=== PATIENT | female | born 1990 | race Caucasian/White ===

== ENCOUNTER 2016-05-12 16:19 | Inpatient (IN) | payer OTHER ==
[~2016-05-12] VITALS: Ht 157.5 cm; Wt 126.3 kg
[~2016-05-12 16:19] MED LIST: ADVAIR DISKU1 INH; ALBUTEROL HFA60 DOSE IN; ALBUTEROL2.5 MG/3 M IN; BENADRYL25 MG PO; BREO ELLIPTA 201 INH PO; EQ LORATADINE10 MG PO; FAMOTIDINE20 MG PO; FLONASE AL50 MCG/ACT; FLOVENT HFA110 MCG IN; IPRATROPIUM BROMIDE/ IN; LORATADINE10 MG PO; MONTELUKAST SOD10 MG PO; PREDNISONE20 MG PO; PROAIR HFA IN; VENTOLIN HFA IN; ZITHROMAX250 MG PO; ZOLOFT50 MG PO; [UNRECOGNIZED DRUG - OTHER] PO
--- NOTE | 2016-05-12 17:18 | DIAGNOSTIC IMAGING REPORT ---
PROCEDURE: XR CHEST 1 VIEW INDICATION: SHORTNESS OF BREATH TECHNIQUE: Portable AP view 1705 hours. COMPARISON: Compared to chest x-ray on 04/27/2016. FINDINGS: Allowing for overlying wires and electrodes, lungs are clear. Heart and mediastinum are normal. Thorax is normal. IMPRESSION: 1. Negative chest.
--- NOTE | 2016-05-12 19:41 | ED NURSING NOTES ---
Clinical Report - Nurses [facility] [address] [place] [address] 05/12/2016 16:21 Patient: STEVE CUI TRIAGE Triage time 16:39 May 12 2016. Acuity: LEVEL 3. Chief Complaint: SHORTNESS OF BREATH and DIFFICULTY BREATHING. --16:42 J Carlos Lou RLatanyaN. 16:39 05/12/16. BP: 118/97. HR: 160. RR: 24. O2 saturation: 90%. Temp: 99.7 F. Pain level now: 02/13. --16:42 Lou Whitman RLatanyaN. Weight: 108.8 kg stated. Height/Length: 62 inches Per Patient. BMI: 43.9. --16:41 J Carlos Lou RLatanyaN. Medications Advair Diskus Inhalation. Albuterol Sulfate Inhalation 2.5mg/3mls per neb, TID. Flonase Nasal 2 sprays, daily. Loratadine Oral 10 mg, daily. ProAir HFA Inhalation 2 puffs, 4x a day as needed. --16:40 J Carlos LouTressa. Allergies NKDA. --16:40 J Carlos Lou RScooter. History Arrived by private vehicle. Historian: patient. PAST MEDICAL HX: Immunizations: up-to-date. SOCIAL HX: Never smoker. No alcohol use or drug use. ABUSE ASSESSMENT: No report of abuse. --16:42 Lou Whitman R.N. This started today. --16:50 Lou Whitman RLatanyaN. ADDITIONAL SURGERIES: no known surgeries. Interventions ID band on patient. To treatment room. --16:42 Lou Whitman RLatanyaN. PHYSICAL ASSESSMENT Ambulatory to room. GENERAL / NEURO / PSYCH: Alert. Oriented X 4. HEENT: Mucous membranes are pink. RESPIRATORY: Moderate respiratory distress. The patient can speak a few words at a time. Nasal flaring present. Retractions. Accessory muscle use. Prolonged expirations. Cough. Wheezing present. CVS: Normal sinus rhythm noted. Capillary refill less than 2 seconds. GI / : Abdomen soft and nontender. Bowel sounds within normal limits. SKIN: Skin is warm and dry. Normal skin turgor. --16:44 J CarlosAugustJen NURSING PROGRESS NOTES Pulse oximeter and NIBP monitor placed on patient. Patient gowned. Head of bed elevated. Reassurance given. Two patient identifiers checked. Call light placed in reach. Side rails up x 1. Bed placed in lowest position. Brakes of bed on. Patient ready for evaluation- chart flagged. --16:44 WalhondingaugustJen 16:45 05/12/2016 Site #1 started via IV in the right forearm with an 22g angiocath, with aseptic technique and good blood return; two attempts. Blood drawn: rainbow set. Labeled in the presence of the patient and sent to the lab. Saline lock flushed with 10 mL saline (Completed by EVERETT RN). --16:45 WalhondingaugustJen 16:51 05/12/2016 Duoneb (Ipratropium-Albuterol) Neb TX Nebulizer 1 unit dose given. Given by the respiratory therapist. Allergies verified and confirmed 5 rights. --17:naugustJen 16:57 05/12/2016 SOLU-MEDROL (MethylPREDNISolone Sodium Succ) IVP 125 mg given over 4 minute(s) via site #1. Allergies verified and confirmed 5 rights. IV patency established. IV site checked: no pain, redness, or swelling. IV flushed thoroughly pre- and post-medication administration. IVP given by RN. --17:02 J CarlosaugustJen 17:05/12/2016 Albuterol Neb TX Nebulizer 2 unit dose given. Given by the respiratory therapist. Allergies verified and confirmed 5 rights. --17:naugustJen 17:26 05/12/2016 Duoneb Neb TX Response: no adverse reaction. --17:51 J CarlosaugustSeanNLatanya 17:26 05/12/2016 SOLU-MEDROL IVP Response: no adverse reaction. --17:51 Walhonding AugustSeanNLatanya 17:27 05/12/2016 Albuterol Neb TX Nebulizer 2.5 mg given. Given by the respiratory therapist. Allergies verified and confirmed 5 rights. --17:37 August, R.N. 17:42 05/12/2016 Magnesium Sulfate (Magnesium Sulfate in D5W) IVP 2 gm given over 1 hour(s) via site #1. Allergies verified and confirmed 5 rights. IV patency established. IV site checked: no pain, redness, or swelling. IV flushed thoroughly pre- and post-medication administration. IVP given by RN. --17:52 August, R.N. 17:47 05/12/2016 SOLU-MEDROL (MethylPREDNISolone Sodium Succ) IVP 125 mg given over 4 minute(s) via site #1. Allergies verified and confirmed 5 rights. IV patency established. IV site checked: no pain, redness, or swelling. IV flushed thoroughly pre- and post-medication administration. IVP given by RN. --17:52 August, RLatanyaNLatanya 17:51 05/12/2016 Albuterol Neb TX Response: no adverse reaction. --17:51 August, R.N. environmental monitoring technician, pulse oximeter and NIBP monitor placed on patient; environmental monitoring technician- Lead II and V5; monitor alarms on. Patient gowned. Head of bed elevated. Cooling measures: ice packs applied to neck (Ice pack to back of neck). Reassurance given. Lights dimmed. Two patient identifiers checked. Call light placed in reach. Side rails up x 2. Bed placed in lowest position. Brakes of bed on. --17:53 August, R.N. 18:38 05/12/2016 Magnesium Sulfate IVP Response: no adverse reaction. --18:43 August, R.NLatanya 18:43 05/12/2016 Albuterol Neb TX Response: no adverse reaction. --18:43 August, R.NLatanya 18:43 05/12/2016 SOLU-MEDROL IVP Response: no adverse reaction. --18:43 August, R.N. 17:00 05/12/16. BP: 115/98. HR: 154. RR: 21. O2 saturation: 93%. --18:46 Walhonding Lou, R.N. 18:47 05/12/16. BP: 109/67. HR: 138. RR: 16. O2 saturation: 98%. --18:48 J Carlos Lou R.N. environmental monitoring technician, pulse oximeter and NIBP monitor placed on patient; environmental monitoring technician- Lead II and V5; monitor alarms on. Patient gowned. Head of bed elevated. Reassurance given. Two patient identifiers checked. Call light placed in reach. Side rails up x 2. Bed placed in lowest position. Brakes of bed on. --18:48 Walhonding August R.N. 18:15 05/12/16. BP: 111/64. HR: 147. RR: 20. O2 saturation: 99%. --18:54 Walhonding August R.N. 18:00 05/12/16. BP: 132/112. HR: 157. RR: 17. O2 saturation: 93%. --18:54 Walhonding August R.N. 17:45 05/12/16. BP: 125/77. HR: 162. RR: 19. O2 saturation: 94%. --18:55 Walhonding August R.N. <<STRICKEN ENTRY-- 17:45 05/12/16. BP: 124/100. HR: 165. RR: 16. O2 saturation: 94%. --18:55 Walhonding Lou R.N. --END STRIKE>> Correction. --18:56 Walhonding August R.NLatanya 17:30 05/12/16. BP: 124/100. HR: 165. RR: 16. O2 saturation: 94%. --18:55 Walhonding August R.N. 17:15 05/12/16. BP: 96/43. HR: 143. RR: 18. O2 saturation: 97%. --18:56 Walhonding August R.N. 19:48 05/12/16. BP: 108/82. HR: 135. RR: 18. O2 saturation: 98% on nasal cannula at 2 liters/minute. Pain level now: 02/13. --19:49 Walhonding Lou R.N. 19:59 05/12/2016 PROTONIX (Pantoprazole Sodium) IVP 40 mg given over 2 minute(s) via site #1. Allergies verified and confirmed 5 rights. IV patency established. IV site checked: no pain, redness, or swelling. IV flushed thoroughly pre- and post-medication administration. IVP given by RN. --19:59 Lou Whitman R.N. DISPOSITION / DISCHARGE Report was given to a nurse via a phone call. Report included patient's care, treatment, medications, reviewed medication reconcilliation, and condition (including any recent changes or anticipated changes). All questions were answered. Report was acknowledged and care was transferred. (Naheed). --21:58 Lou Whitman R.N. 20:30 05/12/2016 PROTONIX IVP Response: no adverse reaction. --22:30 Lou Whitman R.N. 22:20 05/12/2016 Site #[address] upon admission. Converted to saline lock. --22:30 Lou Whitman R.N. 23:15pm. Departure time: 2315 pm. Transported via stretcher by nurse with O2. --22:32 Lou Whitman R.N. 22:30 05/12/16. BP: 110/90. HR: 126. RR: 15. O2 saturation: 98% on nasal cannula at 2 liters/minute. Pain level now: 02/13. --22:32 Lou Whitman R.N. Locked/Released at 05/26/2016 15:14 by Christa Ojeda R.N.
--- NOTE | 2016-05-12 19:41 | ED ORDER SUMMARY ---
..... Patient: STEVE CUI OrderSheet [facility] VisitID: [id number] [place] [address] 26y, F Registration Date/Time: 05/12/2016 ORDER SHEET Weight: 108.8 kg (stated) Allergies: NKDA GENERAL ORDERS: Pulse oximeter (16:45 05/12/2016 ABarnum R.N. per protocol) (16:46 ABarnum R.N.) Chest 2V Urgent (16:52 05/12/2016 HBivens A.R.N.P.) (Ack 16:55 LTapper) (Cancelled: pt to SOB17:02 DDean R.N.) Feeder Operator (Continuous) (16:52 05/12/2016 HBivens A.R.N.P.) (17:00 ABarnum R.N.) CBC w Diff Urgent (16:52 05/12/2016 HBivens A.R.N.P.) (Ack 16:55 LTapper) (17:00 ABarnum R.N.) BMP Urgent (16:52 05/12/2016 HBivens A.R.N.P.) (Ack 16:55 LTapper) (17:00 ABarnum R.N.) Serum Qualitative Urgent (16:52 05/12/2016 HBivens A.R.N.P.) (Ack 16:55 LTapper) (17:00 ABarnum R.N.) Chest 1V Urgent (17:02 05/12/2016 DDean R.N. per protocol) (Ack 17:10 LTapper) (17:37 ABarnum R.N.) ABG (G) Urgent (19:31 05/12/2016 Corby JOSUE) (Ack 19:35 Peyton ARMSTRONG [employer] Consultant) (19:49 ABarnum R.N.) MEDICATION ORDERS: Albuterol Neb Tx 2 unit doses (NOW) (16:52 05/12/2016 HBivens A.R.N.P.) (Ack 17:00 ABarnum R.N.) (17:01 ABarnum R.N.) Solu-MEDROL IM 125 mg (NOW) (16:52 05/12/2016 HBivens A.R.N.P.) (Ack 17:00 ABarnum R.N.) (17:02 ABarnum R.N.) DuoNeb Neb Tx 1 unit dose (NOW) (17:01 05/12/2016 ABarnum R.N. per protocol) (17:01 ABarnum R.N.) Albuterol Neb Tx continuous (NOW) (17:21 05/12/2016 HBivens A.R.N.P.) (17:37 ABarnum R.N.) IV FLUIDS: Magnesium Sulfate IV 2 gm/50mL (HIGH ALERT MEDICATION, NOW, over 1 hour) (17:21 05/12/2016 HBivens A.R.N.P.) (Ack 17:37 ABarnum R.N.) (17:52 ABarnum R.N.) Solu-MEDROL IV 125 mg (NOW) (17:22 05/12/2016 HBivens A.R.N.P.) (Ack 17:37 ABarnum R.N.) (17:52 ABarnum R.N.) Protonix IVP 40mg 40 mg (Mix in NS 10ml over 2min) (19:35 05/12/2016 HBivens A.R.N.P.) (Ack 19:49 ABarnum R.N.) (19:59 ABarnum R.N.) ORDER SHEET NOTES: [Electronically signed by Jumana Penaloza A.R.N.P. (22:52 05/12/2016)] [Electronically signed by Christa Ojeda R.N. (15:14 05/26/2016)] [Electronically locked/signed by Christa Ojeda R.N. (15:14 05/26/2016)]
--- NOTE | 2016-05-12 19:41 | ED ORDER SUMMARY ---
..... Patient: STEVE CUI OrderSheet [facility] VisitID: [id number] [place] [address] 26y, F Registration Date/Time: 05/12/2016 ORDER SHEET Weight: 108.8 kg (stated) Allergies: NKDA GENERAL ORDERS: Pulse oximeter (16:45 05/12/2016 ABarnum R.N. per protocol) (16:46 ABarnum R.N.) Chest 2V Urgent (16:52 05/12/2016 HBivens A.R.N.P.) (Ack 16:55 LTapper) (Cancelled: pt to SOB17:02 DDean R.N.) Seafood Manager (Continuous) (16:52 05/12/2016 HBivens A.R.N.P.) (17:00 ABarnum R.N.) CBC w Diff Urgent (16:52 05/12/2016 HBivens A.R.N.P.) (Ack 16:55 LTapper) (17:00 ABarnum R.N.) BMP Urgent (16:52 05/12/2016 HBivens A.R.N.P.) (Ack 16:55 LTapper) (17:00 ABarnum R.N.) Serum Qualitative Urgent (16:52 05/12/2016 HBivens A.R.N.P.) (Ack 16:55 LTapper) (17:00 ABarnum R.N.) Chest 1V Urgent (17:02 05/12/2016 DDean R.N. per protocol) (Ack 17:10 LTapper) (17:37 ABarnum R.N.) ABG (G) Urgent (19:31 05/12/2016 Corby JOSUE) (Ack 19:35 Peyton ARMSTRONG [employer]anned Leather Roller) (19:49 ABarnum R.N.) MEDICATION ORDERS: Albuterol Neb Tx 2 unit doses (NOW) (16:52 05/12/2016 HBivens A.R.N.P.) (Ack 17:00 ABarnum R.N.) (17:01 ABarnum R.N.) Solu-MEDROL IM 125 mg (NOW) (16:52 05/12/2016 HBivens A.R.N.P.) (Ack 17:00 ABarnum R.N.) (17:02 ABarnum R.N.) DuoNeb Neb Tx 1 unit dose (NOW) (17:01 05/12/2016 ABarnum R.N. per protocol) (17:01 ABarnum R.N.) Albuterol Neb Tx continuous (NOW) (17:21 05/12/2016 HBivens A.R.N.P.) (17:37 ABarnum R.N.) IV FLUIDS: Magnesium Sulfate IV 2 gm/50mL (HIGH ALERT MEDICATION, NOW, over 1 hour) (17:21 05/12/2016 HBivens A.R.N.P.) (Ack 17:37 ABarnum R.N.) (17:52 ABarnum R.N.) Solu-MEDROL IV 125 mg (NOW) (17:22 05/12/2016 HBivens A.R.N.P.) (Ack 17:37 ABarnum R.N.) (17:52 ABarnum R.N.) Protonix IVP 40mg 40 mg (Mix in NS 10ml over 2min) (19:35 05/12/2016 HBivens A.R.N.P.) (Ack 19:49 ABarnum R.N.) (19:59 ABarnum R.N.) ORDER SHEET NOTES: [Electronically signed by Jumana Penaloza A.R.N.P. (22:52 05/12/2016)] [Electronically signed by Christa Ojeda R.N. (15:14 05/26/2016)] [Electronically locked/signed by Christa Ojeda R.N. (15:14 05/26/2016)]
--- NOTE | 2016-05-12 19:41 | ED CLINICAL REPORT ---
Clinical Report - Physicians/Mid Levels [facility] [address] [place] [address] 05/12/2016 16:21 Patient: STEVE CUI Time Seen: 16:45; upon arrival, initial patient contact, initial documentation, patient care assumed. Arrived- By private vehicle. Historian- patient. HISTORY OF PRESENT ILLNESS Chief Complaint: DYSPNEA, WHEEZING and HISTORY OF ASTHMA. This started about 2 - 3 days ago and is still present and now worse. The dyspnea is described as moderate. The patient has had a cough. No sputum production, orthopnea or chest pain. She has had generalized chest discomfort (burning). See nurses notes for current asthma threapy. Asthma triggers: unknown. Takes asthma medications (inhaled albuterol, inhaled steroid) Similar symptoms previously: Chronically, as bad. Recent medical care: The patient was seen recently at this facility in the emergency department. ( txed here 04/26 for asthma issues). REVIEW OF SYSTEMS No sore throat, sinus drainage or fever. She has had a nasal discharge and muscle aches. brother sick with uri flu. All systems otherwise negative, except as recorded above. PAST HISTORY See nurses notes. Problems: Respiratory Failure. Pt has been previously intubated at [facility] in December 2011. Hypertension. Asthma. Seasonal allergies Obesity Developmental delay Surgeries: no known surgeries. SOCIAL HISTORY Never smoker. No alcohol use or drug use. No recent travel. Is a local resident. FAMILY HISTORY Negative. ADDITIONAL NOTES The nursing notes have been reviewed with agreement regarding the chief complaint, HPI, ROS, PMH and patient medications and allergies. PHYSICAL EXAM Vital Signs: 05/12/2016 16:39 BP: 118/97. HR: 160. RR: 24. O2 saturation: 90%. Temp: 99.7 F. Pain level now: 10/10. Have been reviewed as abnormal and appear to be correct. Blood pressure normal. Tachycardic. Respiratory rate normal. Temperature normal. Oxygen saturation low. Appearance: Alert. No acute distress. Eyes: Pupils equal, round and reactive to light. Eyes normal inspection. ENT: Ears normal. Nose normal. Pharynx normal. Uvula midline. Neck: Normal inspection. Neck supple. CVS: Heart rate / rhythm abnormal. Tachycardia (ventricular rate = 160). Heart sounds normal. Pulses normal. Respiratory: Respiratory distress present. Moderate respiratory distress with accessory muscle use, anxiety, diaphoresis and tachypnea. Speaks in single words. Mild fatigue. Mild retractions. Breath sounds abnormal. Expiratory and inspiratory moderate bilateral wheezes diffusely. Abdomen: Moderately obese. Back: Normal inspection. Skin: Skin warm but moist. Normal skin color. No rash. Normal skin turgor. Moderate diaphoresis. Extremities: Extremities exhibit normal ROM. No lower extremity edema. Neuro: Oriented X 3. No motor deficit. No sensory deficit. LABS, X-RAYS, AND EKG Chest X-ray: Normal Chest X-Ray. (IMPRESSION: 1. Negative chest. Electronically Final signed by:Danrell Banuelos MD 05/12/2016 5:15:15 PM). The X-rays were interpreted by the radiologist and contemporaneously by me. Laboratory Tests: Serum Qualitative: (JOSSELYN: 05/12/2016 16:45) ( TxgRcvd 05/12/2016 17:12) Final results Test Result Flag Units (Reference) , SERUM NEGATIVE CBC w Diff: (JOSSELYN: 05/12/2016 16:45) ( MsgRcvd 05/12/2016 17:06) Final results Test Result Flag Units (Reference) WHITE BLOOD COUNT 22.1 H K/uL (4.5-11.5) RED BLOOD COUNT 5.25 H M/uL (4.00-5.20) HEMOGLOBIN 15.5 gm/dL (12.0-16.0) HEMATOCRIT 47.5 H % (36.0-46.0) MEAN CELL VOLUME 91 fL (80-100) MEAN CORPUSCULAR HGB 30 pg (26-34) MEAN CORPUSCULAR HGB CONC 33 g/dL (31-37) RED CELL DISTRIBUTION WIDTH 13.0 % (11.6-14.8) PLATELET COUNT 327 K/uL (150-400) NEUTROPHIL % 91.8 H % (50-75) LYMPH % 2.4 L % (25-40) MONO % 5.5 % (3-14) EOSINOPHIL % 0.2 % (0-4) BASOPHIL % 0.1 % (0-2) BMP: (JOSSELYN: 05/12/2016 16:45) ( MsgRcvd 05/12/2016 17:08) Final results Test Result Flag Units (Reference) GLUCOSE 111 H mg/dL (70-110) BUN 8 mg/dL (7-18) CREATININE 0.7 mg/dL (0.6-1.3) Estimated GFR >60 mL/min Estimated GFR- >60 mL/min Note: Persistent reduction over 3 months in eGFR<60 mL/min/1.73 m2 defines CKD. Patients with eGFR values>=60 mL/min/1.73 m2 may also have CKD if evidence ofpersistent proteinuria. Additional information may be foundat www.kidney.org. SODIUM 136 mmol/L (136-145) POTASSIUM 3.9 mmol/L (3.5-5.1) CHLORIDE 102 mmol/L (98-107) CARBON DIOXIDE 24 mmol/L (21-32) CALCIUM 8.7 mg/dL (8.5-10.1) ABG: (JOSSELYN: 05/12/2016 19:31) ( MsgRcvd 05/12/2016 19:49) Final results Test Result Flag Units (Reference) FIO2 28 % (20-101) ABG MODE OF DELIVERY NC MODIFIED RAY TEST POSITIVE? YES LITERS PER MIN. 2 L/MIN (0-20) ABG PATIENT RESP RATE 20 /MIN ARTERIAL BLOOD GAS SITE LR ARTERIAL BLOOD GAS pH 7.50 H (7.35-7.45) ABG PCO2 23.0 L mmHg (35-45) ABG PO2 73.1 L mmHg (80.0-100.0) ABG BASE EXCESS -4.5 H mmol/L (-6.0--6.0) ABG HCO3 17.7 L mmol/L (20.0-26.0) ABG TCO2 18.4 L mmol/L (24.0-30.0) ABG VbAvA1y 99.6 H mmHg (7.0-14.0) *NOTE: Normal rangeis based on aFIO2 of 21% ABG SAT O2 97.0 % (95.1-100.0) ABG TOTAL HEMOGLOBIN 14.6 g/dL (12.0-16.0) ABG O2 HEMOGLOBIN 95.5 % (95.0-100.0) ABG CARBOXYHEMOGLOBIN 1.5 % (0.5-1.5) ABG METHEMOGLOBIN 0.0 L % (0.4-1.5) ABG RHEMOGLOBIN 3.0 % . PROGRESS AND PROCEDURES Course of Care: 1715. Upon reassessment, pt does not look any better, resp even and labored still, pt looking more tired, B insp and exp wheezes heard thruout, concern for possible intubation, HR 174, R 28, PO 85%ra Dr Dong aware of pt status, and at bedside to exam 1718. nurse aware, asked to move pt to room 1 or 2 for closer observation 1730. speaking to resp therapy about pt's tx plan, pt less diaphoretic now, pt moved into room 1 1745. no change in pt status 18:32 05/12/16. pt has jen for er visits, nothing alarming, see report for full details 18:35 05/12/16. speaking to Dr Alvarez re admitting pt, concerns voiced over possible intubation, and if pt is not doing well, and might need intubation, then transfer out, due to vent management, agreed to observe her a little longer in ER 1850. Mag just finished, no real change in pt status, Resp even and still labored, B breath sounds with insp and exp wheezes heard, discussing with pt about possible intubation, pt stated she felt a little better, but also felt tired 1930. Dr Ceballos here, spoke to him about pt status and whether to transfer, admit, intubate Mcn[place] has no beds Lin to bedside with me to assess pt 2029. abg's results discussed with Lin 20:44 05/12/16. pt doing better, resp even and very mildly labored, continuous neb tx was stopped, po99%ra, and pt stated she felt better 21:47 05/12/16. pt resting quietly, no resp distress, awaiting icu bed. 05/12/2016 18:47 BP: 109/67. HR: 138. RR: 16. O2 saturation: 98%. Vital Signs: have been reviewed as abnormal and appear to be correct. Blood pressure normal. Tachycardic. Respiratory rate normal. Temperature normal. Oxygen saturation normal. Critical care performed (60 minutes). Time includes: direct patient care, patient reassessment, coordination of patient care, interpretation of data (laboratory data, pulse oximetry, arterial blood gases and chest xrays), medical consultation and documentation of patient care- see progress notes. Differential Diagnosis: I considered asthma, pneumonia and pleural effusion as a possible cause of dyspnea in this patient. This is a partial list of diagnoses considered. (flu, bronchitis, uri, sinusitis, allergies, bronchospasm). Above considerations are based on history, physical exam, laboratory data and X-Ray data. Differential diagnosis was discussed with patient. Disposition: Admitted to the Critical Care Unit. 19:54. CLINICAL IMPRESSION Severe persistent asthma with an acute exacerbation, status asthmaticus, hypoxemia and acute respiratory failure. No pneumonia. (Electronically signed by Jumana Penaloza A.R.N.P. 05/12/2016 22:52)
--- NOTE | 2016-05-12 19:41 | ED NURSING NOTES ---
Clinical Report - Nurses [facility] [address] [place] [address] 05/12/2016 16:21 Patient: STEVE CUI TRIAGE Triage time 16:39 May 12 2016. Acuity: LEVEL 3. Chief Complaint: SHORTNESS OF BREATH and DIFFICULTY BREATHING. --16:42 J Carlos Lou RLatanyaN. 16:39 05/12/16. BP: 118/97. HR: 160. RR: 24. O2 saturation: 90%. Temp: 99.7 F. Pain level now: 02/13. --16:42 Lou Whitman RLatanyaN. Weight: 108.8 kg stated. Height/Length: 62 inches Per Patient. BMI: 43.9. --16:41 J Carlos Lou RLatanyaN. Medications Advair Diskus Inhalation. Albuterol Sulfate Inhalation 2.5mg/3mls per neb, TID. Flonase Nasal 2 sprays, daily. Loratadine Oral 10 mg, daily. ProAir HFA Inhalation 2 puffs, 4x a day as needed. --16:40 J Carlos LouTressa. Allergies NKDA. --16:40 J Carlos Lou RScooter. History Arrived by private vehicle. Historian: patient. PAST MEDICAL HX: Immunizations: up-to-date. SOCIAL HX: Never smoker. No alcohol use or drug use. ABUSE ASSESSMENT: No report of abuse. --16:42 Lou Whitman R.N. This started today. --16:50 Lou Whitman RLatanyaN. ADDITIONAL SURGERIES: no known surgeries. Interventions ID band on patient. To treatment room. --16:42 Lou Whitman RLatanyaN. PHYSICAL ASSESSMENT Ambulatory to room. GENERAL / NEURO / PSYCH: Alert. Oriented X 4. HEENT: Mucous membranes are pink. RESPIRATORY: Moderate respiratory distress. The patient can speak a few words at a time. Nasal flaring present. Retractions. Accessory muscle use. Prolonged expirations. Cough. Wheezing present. CVS: Normal sinus rhythm noted. Capillary refill less than 2 seconds. GI / : Abdomen soft and nontender. Bowel sounds within normal limits. SKIN: Skin is warm and dry. Normal skin turgor. --16:44 J CarlosAugustJen NURSING PROGRESS NOTES Pulse oximeter and NIBP monitor placed on patient. Patient gowned. Head of bed elevated. Reassurance given. Two patient identifiers checked. Call light placed in reach. Side rails up x 1. Bed placed in lowest position. Brakes of bed on. Patient ready for evaluation- chart flagged. --16:44 ShelbyaugustJen 16:45 05/12/2016 Site #1 started via IV in the right forearm with an 22g angiocath, with aseptic technique and good blood return; two attempts. Blood drawn: rainbow set. Labeled in the presence of the patient and sent to the lab. Saline lock flushed with 10 mL saline (Completed by EVERETT RN). --16:45 ShelbyaugustJen 16:51 05/12/2016 Duoneb (Ipratropium-Albuterol) Neb TX Nebulizer 1 unit dose given. Given by the respiratory therapist. Allergies verified and confirmed 5 rights. --17:naugustJen 16:57 05/12/2016 SOLU-MEDROL (MethylPREDNISolone Sodium Succ) IVP 125 mg given over 4 minute(s) via site #1. Allergies verified and confirmed 5 rights. IV patency established. IV site checked: no pain, redness, or swelling. IV flushed thoroughly pre- and post-medication administration. IVP given by RN. --17:02 J CarlosaugustJen 17:05/12/2016 Albuterol Neb TX Nebulizer 2 unit dose given. Given by the respiratory therapist. Allergies verified and confirmed 5 rights. --17:naugustJen 17:26 05/12/2016 Duoneb Neb TX Response: no adverse reaction. --17:51 J CarlosaugustSeanNLatanya 17:26 05/12/2016 SOLU-MEDROL IVP Response: no adverse reaction. --17:51 Shelby AugustSeanNLatanya 17:27 05/12/2016 Albuterol Neb TX Nebulizer 2.5 mg given. Given by the respiratory therapist. Allergies verified and confirmed 5 rights. --17:37 August, R.N. 17:42 05/12/2016 Magnesium Sulfate (Magnesium Sulfate in D5W) IVP 2 gm given over 1 hour(s) via site #1. Allergies verified and confirmed 5 rights. IV patency established. IV site checked: no pain, redness, or swelling. IV flushed thoroughly pre- and post-medication administration. IVP given by RN. --17:52 August, R.N. 17:47 05/12/2016 SOLU-MEDROL (MethylPREDNISolone Sodium Succ) IVP 125 mg given over 4 minute(s) via site #1. Allergies verified and confirmed 5 rights. IV patency established. IV site checked: no pain, redness, or swelling. IV flushed thoroughly pre- and post-medication administration. IVP given by RN. --17:52 August, RLatanyaNLatanya 17:51 05/12/2016 Albuterol Neb TX Response: no adverse reaction. --17:51 August, R.N. bus monitor, pulse oximeter and NIBP monitor placed on patient; bus monitor- Lead II and V5; monitor alarms on. Patient gowned. Head of bed elevated. Cooling measures: ice packs applied to neck (Ice pack to back of neck). Reassurance given. Lights dimmed. Two patient identifiers checked. Call light placed in reach. Side rails up x 2. Bed placed in lowest position. Brakes of bed on. --17:53 August, R.N. 18:38 05/12/2016 Magnesium Sulfate IVP Response: no adverse reaction. --18:43 August, R.NLatanya 18:43 05/12/2016 Albuterol Neb TX Response: no adverse reaction. --18:43 August, R.NLatanya 18:43 05/12/2016 SOLU-MEDROL IVP Response: no adverse reaction. --18:43 August, R.N. 17:00 05/12/16. BP: 115/98. HR: 154. RR: 21. O2 saturation: 93%. --18:46 Shelby Lou, R.N. 18:47 05/12/16. BP: 109/67. HR: 138. RR: 16. O2 saturation: 98%. --18:48 J Carlos Lou R.N. bus monitor, pulse oximeter and NIBP monitor placed on patient; bus monitor- Lead II and V5; monitor alarms on. Patient gowned. Head of bed elevated. Reassurance given. Two patient identifiers checked. Call light placed in reach. Side rails up x 2. Bed placed in lowest position. Brakes of bed on. --18:48 Shelby August R.N. 18:15 05/12/16. BP: 111/64. HR: 147. RR: 20. O2 saturation: 99%. --18:54 Shelby August R.N. 18:00 05/12/16. BP: 132/112. HR: 157. RR: 17. O2 saturation: 93%. --18:54 Shelby August R.N. 17:45 05/12/16. BP: 125/77. HR: 162. RR: 19. O2 saturation: 94%. --18:55 Shelby August R.N. <<STRICKEN ENTRY-- 17:45 05/12/16. BP: 124/100. HR: 165. RR: 16. O2 saturation: 94%. --18:55 Shelby Lou R.N. --END STRIKE>> Correction. --18:56 Shelby August R.NLatanya 17:30 05/12/16. BP: 124/100. HR: 165. RR: 16. O2 saturation: 94%. --18:55 Shelby August R.N. 17:15 05/12/16. BP: 96/43. HR: 143. RR: 18. O2 saturation: 97%. --18:56 Shelby August R.N. 19:48 05/12/16. BP: 108/82. HR: 135. RR: 18. O2 saturation: 98% on nasal cannula at 2 liters/minute. Pain level now: 02/13. --19:49 Shelby Lou R.N. 19:59 05/12/2016 PROTONIX (Pantoprazole Sodium) IVP 40 mg given over 2 minute(s) via site #1. Allergies verified and confirmed 5 rights. IV patency established. IV site checked: no pain, redness, or swelling. IV flushed thoroughly pre- and post-medication administration. IVP given by RN. --19:59 Lou hWitman R.N. DISPOSITION / DISCHARGE Report was given to a nurse via a phone call. Report included patient's care, treatment, medications, reviewed medication reconcilliation, and condition (including any recent changes or anticipated changes). All questions were answered. Report was acknowledged and care was transferred. (Naheed). --21:58 Lou Whitman R.N. 20:30 05/12/2016 PROTONIX IVP Response: no adverse reaction. --22:30 Lou Whitman R.N. 22:20 05/12/2016 Site #[address] upon admission. Converted to saline lock. --22:30 Lou Whitman R.N. 23:15pm. Departure time: 2315 pm. Transported via stretcher by nurse with O2. --22:32 Lou Whitman R.N. 22:30 05/12/16. BP: 110/90. HR: 126. RR: 15. O2 saturation: 98% on nasal cannula at 2 liters/minute. Pain level now: 02/13. --22:32 Lou Whitman R.N. Locked/Released at 05/26/2016 15:14 by Christa Ojeda R.N.
--- NOTE | 2016-05-12 20:28 | Progress Note ---
Subjective General Patient has hx of polysubstance abuse and IV heroin presents to ER with elevation in temp,procalcitonin and soft murmur. Will admit for blood cx and IV ABX.
--- NOTE | 2016-05-12 21:42 | Progress Note ---
Subjective General Full note dictated: 26 y.o. female who presented with acute asthma exacerbation, hx of multiple in the past and was with another flare. ABG ok and hyperventilating at this time. Seems to be improving.
[2016-05-12 22:26] VITALS: BP 125/54
--- NOTE | 2016-05-12 22:54 | HISTORY AND PHYSICAL ---
ADMITTED: 05/12/2016 CHIEF COMPLAINT: 1. Shortness of breath HISTORY OF PRESENT ILLNESS: The patient is a 26-year-old female with a long history of asthma, asthma exacerbations and multiple admits to the hospital. She was at home today when she had abrupt onset of severe shortness of breath that was while she was laying down sleeping, she could breathe at all, her family member found her and brought her in to the emergency department for urgent evaluation with significant difficulty with breathing and shortness of breath. MEDICAL/SURGICAL HISTORY: Past medical history: She has been with multiple similar episodes of asthma and asthma exacerbations. She also has some obesity, anxiety, developmental delays. She has had an intubation in the past in 2011 at [facility] for asthma. Past surgical history: None. MEDICATIONS: 1. Albuterol inhaler 2 puffs every 4 hours as needed. 2. Advair Diskus 250/50 inhalation b.i.d. 3. Zoloft 25 mg p.o. daily. ALLERGIES: 1. POLLENS. 2. CAT DANDER. SOCIAL HISTORY: She is single. She lives with her adoptive aunt. She is on Social Security Disability. Does not smoke. Does not drink. Does not use any drugs. FAMILY HISTORY: Mom had mental illness with schizophrenia and father's history is unknown. REVIEW OF SYSTEMS: She has been having a burning sensation in her chest with tight breathing and some wheezing. Otherwise, she denies fevers. Denies having issues prior to this acute exacerbation. She does have some reflux. PHYSICAL EXAMINATION: GENERAL: She is an alert female who is taking deep breaths, but able to talk in full sentences. VITAL SIGNS: Blood pressure 118/97, heart rate of 160, respirations 24, saturating 90%, temperature 99.7. HEENT: Extraocular movements intact. Pupils equal, round, reactive to light. Oropharynx is clear with moist mucous membranes. NECK: Supple without lymphadenopathy. LUNGS: Good air movement, though there are wheezes bilaterally. HEART: Regular rate and rhythm. No murmur. ABDOMEN: Obese, nontender, nondistended. EXTREMITIES: No edema. No sores. GENITOURINARY: Deferred. RECTAL: Deferred. BREASTS: Deferred. LAB/IMAGING: Chest x-ray was negative. Laboratories: CBC: White count of 22.1, hematocrit of 47.5, and platelets of 327 ,000. Basic metabolic panel: Glucose 111, BUN of 8, creatinine 0.7, sodium 136, potassium 3.9, chloride of 102, carbon dioxide 24, calcium of 8.7. Serum was negative. Arterial blood gas: PH of 7.5, pCO2 23, pO2 73, 97% saturation. IMPRESSION: 1. A 26-year-old female with recurrent asthma exacerbation. 2. Obesity. 3. Mild mental changes. 4. Likely obstructive sleep apnea and acid reflux with possible bronchospasm. PLAN: Admit to the hospital, steroids, inhalation treatment. May consider a little bit of Ativan for her hyperventilation if she does not calm down with her breathing, but she seems to be improving at this time. Anticipate that she will be admitted to the hospital for a short stay, though with her history of severe exacerbations coming and going, we do not know exactly which way she will turn.
[2016-05-13 02:16] VITALS: BP 137/75
[2016-05-13 06:39] VITALS: BP 140/79
--- NOTE | 2016-05-13 09:53 | Progress Note ---
Subjective General Pt. doesn't feel well and feels SOB. Doesn't feel she's ready to go home. Other ROS OK except for cough and general feeling of malaise. Physical Exam Vital Signs / I&Os Vital Signs Date Time Temp Pulse Resp B/P Pulse O2 O2 Flow FiO2 Ox Delivery Rate 05/13 799 2.0 05/13 0539 98.4 121 21 140/79 94 Nasal 3.0 Cannula 05/13 0602 3.0 05/13 0216 98.4 119 20 137/75 96 Nasal 3.0 Cannula 05/13 0130 3.0 05/12 2322 3.0 05/12 2237 2.0 05/12 2226 97.7 123 24 125/54 98 Nasal 3.0 Cannula 05/12 1999 2.0 I&O 05/12 0805/12 1600 05/13 0000 Intake Total Output Total Balance General Appearance Alert, Oriented X3, Cooperative, some frequent coughing. HEENT Normal exam Lungs Chest basically clear . Slinghtly prolonged expiratory phase by no disticnt wheezing. Cardiovascular tachycardia., no M or G. Abdomen Normal exam, Normal bowel sounds, Soft, No tenderness Skin No Rashes, No Breakdown Neurological Normal exam, Normal speech, Cranial nerves intact Psych/Mental Status quite anxious LAB Results Laboratory Tests 05/12 05/12 05/12 05/13 1645 1645 1931 0500 Blood Gas Sample Site LR Total CO2 (24.0 - 30.0 mmol/L) 18.4 ABG pH (7.35 - 7.45) 7.50 ABG pCO2 at Pt Temp (35 - 45 mmHg) 23.0 ABG pO2 at Pt Temp (80.0 - 100.0 mmHg) 73.1 ABG HCO3 (20.0 - 26.0 mmol/L) 17.7 ABG O2 Sat Calc/Kiana (95.1 - 100.0 %) 97.0 ABG Base Excess (-6.0 - -6.0 mmol/L) -4.5 ABG Reduced Hgb (%) 3.0 ABG Carboxyhemoglobin (0.5 - 1.5 %) 1.5 ABG Methemoglobin (0.4 - 1.5 %) 0.0 Gabriel Test YES Other Total Hgb (12.0 - 16.0 g/dL) 14.6 A-a O2 Gradient (7.0 - 14.0 mmHg) 99.6 Hgb O2 Saturation (95.0 - 100.0 %) 95.5 Respiration Rate (/MIN) 20 O2 Liters/Min (0 - 20 L/MIN) 2 Vent Mode NC FiO2 (20 - 101 %) 28 Chemistry Plasma Sodium (136 - 145 mmol/L) 136 Cancelled Plasma Potassium (3.5 - 5.1 mmol/L) 3.9 Cancelled Plasma Chloride (98 - 107 mmol/L) 102 Cancelled CO2 (Enzymatic) (21 - 32 mmol/L) 24 Cancelled BUN (7 - 18 mg/dL) 8 Cancelled Creatinine (0.6 - 1.3 mg/dL) 0.7 Cancelled Est GFR ( Amer) (mL/min) >60 Cancelled Est GFR (Non-Af Amer) (mL/min) >60 Cancelled Glucose (70 - 110 mg/dL) 111 Cancelled Plasma Calcium (8.5 - 10.1 mg/dL) 8.7 Cancelled Serum , Qual NEGATIVE Hematology WBC (4.5 - 11.5 K/uL) 22.1 Cancelled RBC (4.00 - 5.20 M/uL) 5.25 Cancelled Hgb (12.0 - 16.0 gm/dL) 15.5 Cancelled Hct (36.0 - 46.0 %) 47.5 Cancelled MCV (80 - 100 fL) 91 Cancelled MCH (26 - 34 pg) 30 Cancelled RDW (11.6 - 14.8 %) 13.0 Cancelled Neut % (Auto) (50 - 75 %) 91.8 Lymph % (Auto) (25 - 40 %) 2.4 [place] % (Auto) (3 - 14 %) 5.5 Eos % (Auto) (0 - 4 %) 0.2 Baso % (Auto) (0 - 2 %) 0.1 Plt Count, EDTA (150 - 400 K/uL) 327 Cancelled PUBS MCHC (31 - 37 g/dL) 33 Cancelled 05/13 0500 Chemistry Procalcitonin Cancelled Microbiology Date/Time Procedure - Status Source Growth 05/13 005 MRSA Screen - RECD NASAL 05/12 2021 Blood Culture - CAN BLOOD Cancelled: Cancelled via OE: wrong patient 05/12 2021 Blood Culture - CAN BLOOD Cancelled: Cancelled via OE: wrong patient Assessment and Plan Problem List 1. Asthma exacerbation Plan Lungs are curently clear. Will switch to Xopenex to see if this reduces tacycardia. 2. Anxiety Plan Will add low dose lorazepam. 3. URI (upper respiratory infection) Plan Trial of Benzonatate and/or guaifenisen with codeine for cough. E&M Codes Rounding: Obsv-Comp/Moderate/[id number]
[2016-05-13 10:29] VITALS: BP 140/85
[2016-05-13 14:04] VITALS: BP 144/81
[2016-05-13 16:33] VITALS: BP 136/73
[2016-05-13 18:56] VITALS: BP 147/88
[2016-05-14] VITALS (7 sets, daily range): BP systolic 101–134; BP diastolic 43–114
--- NOTE | 2016-05-14 08:08 | Progress Note ---
Subjective General 26 y.o. female who presented with acute asthma exacerbation, hx of multiple in the past and was with another flare. Has some improvement in oxygenation on ABG. STill with some sx of SOB. Influeza pos. She feels that she is too bad for d/c still. Too hard to breathe. Physical Exam Vital Signs / I&Os Vital Signs Date Time Temp Pulse Resp B/P Pulse O2 O2 Flow FiO2 Ox Delivery Rate 05/14 729 97.5 104 20 96 Nasal 6.0 Cannula 05/14 0600 3.0 05/14 0548 97.9 119 24 129/71 96 Nasal 6.0 Cannula 05/14 0506 103 21 98 Nasal 6.0 Cannula 05/14 0313 2.0 05/14 0004 98.4 139 18 122/69 94 Nasal 2.0 Cannula 05/13 2253 2.0 05/13 1930 6.0 05/13 1922 2.0 05/13 1856 98.4 128 17 147/88 95 Nasal 2.0 Cannula 05/13 1633 137 20 136/73 94 Nasal 2.0 Cannula 05/13 1610 2.0 05/13 1404 98.2 123 20 144/81 95 Nasal 2.0 Cannula 05/13 1123 2.0 05/13 1029 98.2 113 20 140/85 94 Nasal 2.0 Cannula 05/13 0830 Nasal 2.0 Cannula 05/13 0800 2.0 I&O 05/14 0000 05/13 1600 05/13 0800 Intake Total 400 440 240 Output Total 225 600 Balance 400 215 -360 General Appearance Alert, Cooperative, No acute distress HEENT Normal exam Lungs has some diffuse wheezes mild with good air movement. Cardiovascular Regular rate and rhythm Abdomen Soft, obese Extremities Normal exam, No edema LAB Results Laboratory Tests 05/13 1932 Blood Gas Sample Site RR Total CO2 (24.0 - 30.0 mmol/L) 22.0 ABG pH (7.35 - 7.45) 7.37 ABG pCO2 at Pt Temp (35 - 45 mmHg) 36.0 ABG pO2 at Pt Temp (80.0 - 100.0 mmHg) 76.2 ABG HCO3 (20.0 - 26.0 mmol/L) 20.8 ABG O2 Sat Calc/Kiana (95.1 - 100.0 %) 96.1 ABG Base Excess (-6.0 - -6.0 mmol/L) -4.0 ABG Reduced Hgb (%) 3.9 ABG Carboxyhemoglobin (0.5 - 1.5 %) 1.2 ABG Methemoglobin (0.4 - 1.5 %) 0.0 Gabriel Test YES Other Total Hgb (12.0 - 16.0 g/dL) 14.4 A-a O2 Gradient (7.0 - 14.0 mmHg) 195.0 Hgb O2 Saturation (95.0 - 100.0 %) 94.9 Respiration Rate (/MIN) 20 O2 Liters/Min (0 - 20 L/MIN) 6 Vent Mode NC FiO2 (20 - 101 %) 44 Assessment and Plan Problem List 1. Asthma exacerbation Plan Has flare of asthma. She feels she is still too sick to go home and continues to have wheezes but good airmovement. Will try to walk her later today and consider d/c home. 2. Influenza Plan Tamiflu for influenza pos.
[2016-05-15 06:50] VITALS: BP 119/65
[2016-05-15 10:17] VITALS: BP 125/76
[2016-05-15 16:10] VITALS: BP 142/86
--- NOTE | 2016-05-15 16:40 | Progress Note ---
Subjective General Patient is seen at the bedside, says feeling little better today Constitutional Denies: Fever, Chills, Sweats, Weakness. Eyes Denies: Conjunctival Inflammation, Eyelid Inflammation, Redness. ENT Denies: Nasal Congestion, Mouth Pain, Mouth Swelling, Throat Pain, Throat Swelling. Respiratory Cough, Dry, SOB w/exertion, Wheezing. Cardiovascular Denies: Chest Pain, Palpitations, Orthopnea, PND, Edema. Gastrointestinal Denies: Nausea, Vomiting, Abdominal Pain, Diarrhea, Constipation. Genitourinary Denies: Dysuria, Frequency, Incontinence, Hematuria. Musculoskeletal Denies: Back Pain. Neurological Denies: Weakness, Numbness, Incoordination, Change in speech, Confusion, Seizures. Physical Exam Vital Signs / I&Os Vital Signs Date Time Temp Pulse Resp B/P Pulse O2 O2 Flow FiO2 Ox Delivery Rate 05/15 1610 97.9 109 21 142/86 95 Nasal 3.0 Cannula 05/15 1542 3.0 05/15 1213 3.0 05/15 1017 98.4 107 17 125/76 96 Nasal 4.5 Cannula 05/15 0845 Nasal 4.5 Cannula 05/15 0731 4.0 05/15 0650 97.9 93 18 119/65 98 Nasal 4.0 Cannula 05/15 0513 100 18 98 Nasal 4.0 Cannula 05/15 0458 4.0 05/15 0122 5.0 05/14 2332 98.2 119 16 124/44 97 Nasal 5.0 Cannula 05/14 2235 5.0 05/14 1950 4.0 05/14 1921 130 18 105/50 97 Nasal 4.0 Cannula 05/14 1855 4.0 05/14 1838 98.2 140 18 134/114 94 Nasal 4.0 Cannula 05/14 1648 8.0 I&O 05/14 0800 05/14 1600 05/15 0000 Intake Total Output Total 525 Balance -525 General Appearance Alert, Oriented X3, No acute distress HEENT Normal exam, Atraumatic, Moist mucous membranes Lungs Clear to auscultation Neck Normal exam, No JVD Cardiovascular Normal exam, Regular rate and rhythm, No murmurs, gallops, rubs Abdomen Normal bowel sounds, Soft, No tenderness, No guarding, No rebound Extremities No edema Skin No Rashes, No Breakdown, No Significant Lesions Neurological No lateralizing signs LAB Results Laboratory Tests 05/15 1208 Chemistry Plasma Sodium (136 - 145 mmol/L) 140 Plasma Potassium (3.5 - 5.1 mmol/L) 3.9 Plasma Chloride (98 - 107 mmol/L) 103 CO2 (Enzymatic) (21 - 32 mmol/L) 30 BUN (7 - 18 mg/dL) 17 Creatinine (0.6 - 1.3 mg/dL) 0.7 Est GFR ( Amer) (mL/min) >60 Est GFR (Non-Af Amer) (mL/min) >60 Glucose (70 - 110 mg/dL) 148 Plasma Calcium (8.5 - 10.1 mg/dL) 8.5 Hematology WBC (4.5 - 11.5 K/uL) 11.2 RBC (4.00 - 5.20 M/uL) 4.47 Hgb (12.0 - 16.0 gm/dL) 13.4 Hct (36.0 - 46.0 %) 40.7 MCV (80 - 100 fL) 91 MCH (26 - 34 pg) 30 RDW (11.6 - 14.8 %) 13.3 Neut % (Auto) (50 - 75 %) 81.6 Lymph % (Auto) (25 - 40 %) 6.2 [place] % (Auto) (3 - 14 %) 12.2 Eos % (Auto) (0 - 4 %) 0 Baso % (Auto) (0 - 2 %) 0 Plt Count, EDTA (150 - 400 K/uL) 324 PUBS MCHC (31 - 37 g/dL) 33 Assessment and Plan Problem List 1. Asthma exacerbation Plan c/w currnet management with soulmedrol and duo nebs 2. Influenza Plan c/w tamiflu 3. Depression Plan on sertraline E&M Codes Rounding: Inpt-Moderate/[id number]
[2016-05-15 18:43] VITALS: BP 146/75
[2016-05-15 23:02] VITALS: BP 154/93
[2016-05-16 05:06] VITALS: BP 128/74
[2016-05-16 06:41] VITALS: BP 124/74
[2016-05-16 10:50] VITALS: BP 142/63
[2016-05-16 14:33] VITALS: BP 130/89
[2016-05-16] MEDS ORDERED: PREDNISONE20 MG PO (17:35)
[2016-05-16] MEDS ORDERED: SINGULAIR10 MG PO (17:37)
--- NOTE | 2016-05-16 18:20 | Provider's Discharge Care Plan ---
Problem, Goal, Plan Problem List 1. Asthma exacerbation Instructions: Follow up as needed, Follow up as directed, Take meds as directed, complete the course of antibiotics duo nebs q 4hrly
--- NOTE | 2016-05-22 09:03 | DISCHARGE SUMMARY ---
ADMIT DATE: 05/12/2016 DISCHARGE DATE: 05/16/2016 ADMITTING DIAGNOSES: 1. Chronic obstructive pulmonary disease exacerbation 2. Acute respiratory distress with hypoxia and hypercapnia, resolved DISCHARGE DIAGNOSES: 1. Asthma exacerbation 2. Acute respiratory distress with hypoxia BRIEF HISTORY: A 26-year-old female with persistent asthma who presented to [facility] Emergency Department on 05/12/2016 with a complaint of severe shortness of breath. On initial evaluation in the emergency department, she was found to be in acute respiratory distress and her ABG showed acute respiratory distress with hypoxia . Physical examination was consistent with acute severe exacerbation of asthma. For that, she received IV Solu-Medrol and underwent treatment in the emergency department and was admitted to the floor for further management. HOSPITAL COURSE: The patient was admitted with severe asthma exacerbation and acute respiratory failure with hypoxia. She was treated with high doses of Solu-Medrol, IV hydration, and DuoNebs. She gradually improved and she was discharged home in stable condition. PHYSICAL EXAMINATION: VITAL SIGNS: On physical examination, her vitals at the time of discharge were blood pressure 130/89, pulse rate 84, temperature of 98.2, respiratory rate 14 per minute, saturations 94. GENERAL: She was alert, awake and oriented x3. HEENT: Head, ears, eyes, nose, and throat exam within normal limits. CHEST: Wheezing which was mild and she had good air entry bilaterally. HEART: S1, S2 normal. ABDOMEN: Normal bowel sounds. Soft, nontender. No guarding. No rigidity. SKIN: Intact. NEUROLOGIC: Grossly intact. LAB/IMAGING: Her labs at the time of discharge were WBC 11.2, hemoglobin 13.4, hematocrit 40.7, neutrophils 81.6, platelets 324. Sodium 140, potassium 3.9, chloride 103, bicarbonate 30, BUN 17, creatinine 0.7. GFR more than 60. Glucose 148, calcium 8.5. test negative. ABG once again of admission, pH 7.37, pCO2 of 36, pO2 76.2, bicarbonate 20, 02 sat 96. Chest x-ray was done on 05/12/2016. It was negative chest x-ray with no acute pathology. DISCHARGE INSTRUCTIONS/MEDICATIONS: She was discharged on a tapering course of steroids. She is also continued on DuoNebs. She was prescribed Singulair and asked to a client specialist as an outpatient for persistent asthma with frequent exacerbations.
--- NOTE | 2016-05-26 15:15 | ED DISCHARGE INSTRUCTIONS ---
Patient: STEVE CUI General Instructions [facility] VisitID: [id number] [address] [place] [address] 26y, F Registration Date/Time: 05/12/2016 Severe persistent asthma with an acute exacerbation, status asthmaticus, hypoxemia and acute respiratory failure. No pneumonia. (Electronically signed by Jumana Penaloza A.R.N.P. 05/12/2016 22:52)
--- NOTE | 2016-05-26 15:15 | ED MED RECONCILIATION SUMMARY ---
Patient: STEVE CUI Medication Reconciliation Report [facility] VisitID: [id number] [place] [address] 26y, F Registration Date/Time: 05/12/2016 Weight: 108.8 kg Height/Length: 62 in. BMI: 43.9 ALLERGIES: NKDA The patient's Home Medications are listed below: THE FOLLOWING MEDICATIONS NEED TO BE RECONCILED: Advair Diskus Inhalation Albuterol Sulfate Inhalation 2.5mg/3mls per neb, TID Flonase Nasal 2 sprays, daily Loratadine Oral 10 mg, daily ProAir HFA Inhalation 2 puffs, 4x a day The source(s) of the original Home Medication information: Not obtained. The following Medications were given to the patient in the Emergency Department: Albuterol [Neb Tx] Neb TX 2 unit dose, administered: 05/12/2016 5:01:00 PM Duoneb [Neb Tx] Neb TX 1 unit dose, administered: 05/12/2016 4:51:00 PM SOLU-MEDROL [IVP] IVP 125 mg, administered: 05/12/2016 4:57:00 PM Albuterol [Neb Tx] Neb TX 2.5 mg, administered: 05/12/2016 5:27:00 PM Magnesium Sulfate [IVP] IVP 2 gm, administered: 05/12/2016 5:42:00 PM SOLU-MEDROL [IVP] IVP 125 mg, administered: 05/12/2016 5:47:00 PM PROTONIX [IVP] IVP 40 mg, administered: 05/12/2016 7:59:00 PM The following Medications were prescribed to the patient: None.
--- NOTE | 2016-05-26 15:15 | ED MAR SUMMARY ---
..... Medication Administration Record [facility] [address] [place] [address] Patient: STEVE CUI Visit ID: [id number] 26y, F Weight: 108.8 kg Height/Length: 62 in BMI: 43.9 ALLERGIES: NKDA Given 16:51 05/12/2016 Lou Whitman R.N. Medication Administered: DUONEB [NEB TX] (IPRATROPIUM-ALBUTEROL), Dose: 1 unit dose Nebulizer Neb TX. Medication Ordered: DuoNeb Neb Tx 1 unit dose (NOW). Given 16:57 05/12/2016 Lou Whitman R.N. Medication Administered: SOLU-MEDROL [IVP] (METHYLPREDNISOLONE SODIUM SUCC), Dose: 125 mg IVP over 4 minute(s), Site: #1 right forearm. Medication Ordered: Solu-MEDROL IM 125 mg (NOW). Given 17:01 05/12/2016 Lou Whitman R.N. Medication Administered: ALBUTEROL [NEB TX], Dose: 2 unit dose Nebulizer Neb TX. Medication Ordered: Albuterol Neb Tx 2 unit doses (NOW). Given 17:27 05/12/2016 Lou Whitman R.N. Medication Administered: ALBUTEROL [NEB TX], Dose: 2.5 mg Nebulizer Neb TX. Medication Ordered: Albuterol Neb Tx continuous (NOW). Given 17:42 05/12/2016 Lou Whitman R.N. Medication Administered: MAGNESIUM SULFATE [IVP] (MAGNESIUM SULFATE IN D5W), Dose: 2 gm IVP over 1 hour(s), Site: #1 right forearm. Medication Ordered: Magnesium Sulfate IV 2 gm/50mL (HIGH ALERT MEDICATION, NOW, over 1 hour). Given 17:47 05/12/2016 Lou Whitman R.N. Medication Administered: SOLU-MEDROL [IVP] (METHYLPREDNISOLONE SODIUM SUCC), Dose: 125 mg IVP over 4 minute(s), Site: #1 right forearm. Medication Ordered: Solu-MEDROL IV 125 mg (NOW). Given 19:59 05/12/2016 Lou Whitman R.N. Medication Administered: PROTONIX [IVP] (PANTOPRAZOLE SODIUM), Dose: 40 mg IVP over 2 minute(s), Site: #1 right forearm. Medication Ordered: Protonix IVP 40mg 40 mg (Mix in NS 10ml over 2min).
--- NOTE | 2016-05-26 15:15 | ED MAR SUMMARY ---
..... Medication Administration Record [facility] [address] [place] [address] Patient: STEVE CUI Visit ID: [id number] 26y, F Weight: 108.8 kg Height/Length: 62 in BMI: 43.9 ALLERGIES: NKDA Given 16:51 05/12/2016 Lou Whitman R.N. Medication Administered: DUONEB [NEB TX] (IPRATROPIUM-ALBUTEROL), Dose: 1 unit dose Nebulizer Neb TX. Medication Ordered: DuoNeb Neb Tx 1 unit dose (NOW). Given 16:57 05/12/2016 Lou Whitman R.N. Medication Administered: SOLU-MEDROL [IVP] (METHYLPREDNISOLONE SODIUM SUCC), Dose: 125 mg IVP over 4 minute(s), Site: #1 right forearm. Medication Ordered: Solu-MEDROL IM 125 mg (NOW). Given 17:01 05/12/2016 Lou Whitman R.N. Medication Administered: ALBUTEROL [NEB TX], Dose: 2 unit dose Nebulizer Neb TX. Medication Ordered: Albuterol Neb Tx 2 unit doses (NOW). Given 17:27 05/12/2016 Lou Whitman R.N. Medication Administered: ALBUTEROL [NEB TX], Dose: 2.5 mg Nebulizer Neb TX. Medication Ordered: Albuterol Neb Tx continuous (NOW). Given 17:42 05/12/2016 Lou Whitman R.N. Medication Administered: MAGNESIUM SULFATE [IVP] (MAGNESIUM SULFATE IN D5W), Dose: 2 gm IVP over 1 hour(s), Site: #1 right forearm. Medication Ordered: Magnesium Sulfate IV 2 gm/50mL (HIGH ALERT MEDICATION, NOW, over 1 hour). Given 17:47 05/12/2016 Lou Whitman R.N. Medication Administered: SOLU-MEDROL [IVP] (METHYLPREDNISOLONE SODIUM SUCC), Dose: 125 mg IVP over 4 minute(s), Site: #1 right forearm. Medication Ordered: Solu-MEDROL IV 125 mg (NOW). Given 19:59 05/12/2016 Lou Whitman R.N. Medication Administered: PROTONIX [IVP] (PANTOPRAZOLE SODIUM), Dose: 40 mg IVP over 2 minute(s), Site: #1 right forearm. Medication Ordered: Protonix IVP 40mg 40 mg (Mix in NS 10ml over 2min).
--- NOTE | 2016-05-26 15:15 | ED DISCHARGE INSTRUCTIONS ---
Patient: STEVE CUI General Instructions [facility] VisitID: [id number] [address] [place] [address] 26y, F Registration Date/Time: 05/12/2016 Severe persistent asthma with an acute exacerbation, status asthmaticus, hypoxemia and acute respiratory failure. No pneumonia. (Electronically signed by Jumana Penaloza A.R.N.P. 05/12/2016 22:52)
--- NOTE | 2016-05-26 15:15 | ED MED RECONCILIATION SUMMARY ---
Patient: STEVE CUI Medication Reconciliation Report [facility] VisitID: [id number] [place] [address] 26y, F Registration Date/Time: 05/12/2016 Weight: 108.8 kg Height/Length: 62 in. BMI: 43.9 ALLERGIES: NKDA The patient's Home Medications are listed below: THE FOLLOWING MEDICATIONS NEED TO BE RECONCILED: Advair Diskus Inhalation Albuterol Sulfate Inhalation 2.5mg/3mls per neb, TID Flonase Nasal 2 sprays, daily Loratadine Oral 10 mg, daily ProAir HFA Inhalation 2 puffs, 4x a day The source(s) of the original Home Medication information: Not obtained. The following Medications were given to the patient in the Emergency Department: Albuterol [Neb Tx] Neb TX 2 unit dose, administered: 05/12/2016 5:01:00 PM Duoneb [Neb Tx] Neb TX 1 unit dose, administered: 05/12/2016 4:51:00 PM SOLU-MEDROL [IVP] IVP 125 mg, administered: 05/12/2016 4:57:00 PM Albuterol [Neb Tx] Neb TX 2.5 mg, administered: 05/12/2016 5:27:00 PM Magnesium Sulfate [IVP] IVP 2 gm, administered: 05/12/2016 5:42:00 PM SOLU-MEDROL [IVP] IVP 125 mg, administered: 05/12/2016 5:47:00 PM PROTONIX [IVP] IVP 40 mg, administered: 05/12/2016 7:59:00 PM The following Medications were prescribed to the patient: None.
== END 2016-05-16 19:00 | disposition home or self-care (01) | DRG 141 ==
LOC: ED SRH 16:19 → TRANS SRH 20:16 → CC SRH 22:21
PROVIDERS: ADMIT Family Medicine
DX: J45.52 Severe persistent asthma with status asthmaticus (principal); J96.01 Acute respiratory failure with hypoxia; J96.02 Acute respiratory failure with hypercapnia; J10.1 Influenza due to other identified influenza virus with other respiratory manifestations; F41.9 Anxiety disorder, unspecified; R62.50 Unspecified lack of expected normal physiological development in childhood
CPT/HCPCS: 90047; 90074; 92132; 94139; 94140; 94141; 95059; 98428

== ENCOUNTER 2016-10-24 18:11 | Emergency (ER) | payer OTHER ==
[~2016-10-24 18:11] MED LIST changes: +SINGULAIR10 MG PO
--- NOTE | 2016-10-24 20:02 | DIAGNOSTIC IMAGING REPORT ---
PROCEDURE: XR CHEST 1 VIEW INDICATION: ASTHMA TECHNIQUE: Portable AP view 07:38 p.m. COMPARISON: Chest x-ray 05/12/2016. FINDINGS: Lordotic positioning. Lungs are clear. Heart and mediastinum are normal. Thorax is normal. IMPRESSION: 1. Negative chest.
--- NOTE | 2016-10-24 20:27 | ED ORDER SUMMARY ---
..... Patient: STEVE CUI OrderSheet [facility] VisitID: [id number] [place] [address] 26y, F Registration Date/Time: 10/24/2016 ORDER SHEET Weight: 108.8 kg (stated) Allergies: NKDA GENERAL ORDERS: RT Evaluation Stat (18:30 10/24/2016 Manuel R.NLatanya per protocol) (18:30 Manuel R.N.) Chest 1V Urgent (19:23 10/24/2016 Corby JOSUE) (Ack 19:27 AMcQuoid ER Tech1) (19:39 MCampbell) MEDICATION ORDERS: Albuterol Neb Tx 1 unit dose (NOW) (19:15 10/24/2016 Corby JOSUE) (20:39 Carlos Eduardo R.N.) DuoNeb Neb Tx 1 unit dose (NOW) (19:15 10/24/2016 Corby JOSUE) (20:39 KPaKori R.N.) IV FLUIDS: Solu-MEDROL IV 125 mg (NOW) (19:14 10/24/2016 Corby JOSUE) (19:35 KPaKori R.N.) ORDER SHEET NOTES: [Electronically signed by Juan Cook R.N. (20:56 10/24/2016)] [Electronically signed by Peter Dong MD (09:38 10/25/2016)] [Electronically locked/signed by Juan Cook R.N. (20:56 10/24/2016)]
--- NOTE | 2016-10-24 20:27 | ED CLINICAL REPORT ---
Clinical Report - Physicians/Mid Levels [facility] [address] [place] [address] 10/24/2016 18:11 Patient: STEVE CUI Time Seen: 18:29. Arrived- By private vehicle. Historian- patient. HISTORY OF PRESENT ILLNESS Chief Complaint: DYSPNEA. This started today and is still present. It was abrupt in onset and has been constant. The dyspnea is described as severe. She has had dyspnea at rest. No cough, sputum production or chest pain or discomfort. See nurses notes for current asthma threapy. Takes asthma medications. Similar symptoms previously: Many times. REVIEW OF SYSTEMS No chills, fever, sweats, calf pain or chest pain. No pedal edema, palpitations, abdominal pain, constipation or diarrhea. No nausea, vomiting or urinary problems. All systems otherwise negative, except as recorded above. PAST HISTORY Primary physician (GINNA BIGGS). Problems: Leukocytosis. Bronchitis. Respiratory Failure. Pt has been previously intubated at [facility] in December 2011. Hypertension. Pneumonia. Asthma. Additional Surgeries: no known surgeries. Medications: Ventolin HFA Inhalation. Advair Diskus Inhalation. Albuterol Sulfate Inhalation 2.5mg/3mls per neb, TID. Flonase Nasal 2 sprays, daily. Loratadine Oral 10 mg, daily. Allergies: NKDA. SOCIAL HISTORY Never smoker. No alcohol use or drug use. FAMILY HISTORY Denies family medical history. ADDITIONAL NOTES The nursing notes have been reviewed. PHYSICAL EXAM Vital Signs: 10/24/2016 18:26 BP: 152/105. HR: 104. RR: 18. O2 saturation: 94%. Temp: 99.5 F. Have been reviewed. Appearance: Alert. She is morbidly obese. Eyes: Pupils equal, round and reactive to light. ENT: Pharynx normal. Uvula midline. Neck: Normal inspection. Neck supple. No JVD. CVS: Normal heart rate and rhythm. Heart sounds normal. Respiratory: Respiratory distress. Retractions. Accessory muscle use. Prolonged expirations. Decreased air movement. Wheezing present. Abdomen: Soft and nontender. No organomegaly. Obese. Back: Normal inspection. Skin: Skin warm and dry. Normal skin color. Normal skin turgor. Extremities: Extremities exhibit normal ROM. No calf tenderness. No lower extremity edema. LABS, X-RAYS, AND EKG EKG: Rate: 90. sinus arrythmia. Prior EKG unavailable. The study has been independently viewed by me. Chest X-ray: No acute disease. PROGRESS AND PROCEDURES Course of Care: Symptoms better. Vital signs have been reviewed. Alert. Breath sounds normal. No respiratory distress. No wheezes. Normal heart rate and rhythm. Heart sounds normal. Abdomen soft and nontender. Skin warm and dry. Old medical records reviewed. Disposition: Discharged. Condition: stable. CLINICAL IMPRESSION Asthma with an acute exacerbation. INSTRUCTIONS Warnings: Further evaluation is necessary. GENERAL WARNINGS: Return or contact your physician immediately if your condition worsens or changes unexpectedly, if not improving as expected, or if other problems arise. Prescription Medications: Albuterol HFA oral inhaler: inhale 2 puffs via spacer every 4 hours as needed for wheezing or shortness of breath. Dispense one (1) unit. No refill. Prednisone 20 mg: take 3 orally every day for 5 days. Dispense fifteen (15). No refills. Follow-up: Follow up with your doctor Patricio tomorrow as scheduled. Understanding of the discharge instructions verbalized by patient. (Electronically signed by Peter Dong MD 10/25/2016 9:38)
--- NOTE | 2016-10-24 20:27 | ED NURSING NOTES ---
Clinical Report - Nurses [facility] [address] [place] [address] 10/24/2016 18:11 Patient: STEVE CUI TRIAGE Triage time 18:26. Acuity: LEVEL 4. Chief Complaint: SHORTNESS OF BREATH and "ASTHMA ATTACK". 18:10/24/16. 18:10/24/16. SEPSIS SCREEN: Sepsis Screen. Negative (no infection suspected/documented). --18:29 Favian Mills R.N. 18:10/24/16. BP: 152/105. HR: 104. RR: 18. O2 saturation: 94% on room air. Temp: 99.5 F (oral). --18:29 Favian Mills R.N. Weight: 108.8 kg stated. Height/Length: 62 inches Per Patient. BMI: 43.9. --18:27 Favian Mills R.N. Medications Advair Diskus Inhalation. Albuterol Sulfate Inhalation 2.5mg/3mls per neb, TID. Flonase Nasal 2 sprays, daily. Loratadine Oral 10 mg, daily. --18:28 Favian Mills R.N. Ventolin HFA Inhalation. --18:28 Favian Mills R.N. Medication/allergy information source: the patient. --18:29 Favian Mills R.N. Allergies NKDA. --18:28 Favian Mills R.N. History Arrived by private vehicle. Historian: patient. Accompanied by family. Primary physician (GINNA BIGGS). 18:26 10/24/16. This started today. She has had a cough and wheezing. 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 PAST MEDICAL HX: Immunizations: up-to-date. Last normal menstrual period now. SOCIAL HX: Never smoker. No alcohol use or drug use. No infectious disease exposure. ABUSE ASSESSMENT: No report of abuse. FALL RISK ASSESSMENT: Fall risk assessment completed. No fall risk identified. NUTRITIONAL RISK ASSESSMENT: The nutritional risk assessment revealed no deficiencies. FUNCTIONAL ASSESSMENT: Functional assessment: no impairments noted. LEARNING NEEDS ASSESSMENT: The learning needs assessment revealed no barriers. SKIN INTEGRITY ASSESSMENT: Skin integrity risk assessment completed. No skin integrity risk identified. --18:29 Favian Mills R.N. PROBLEMS: Leukocytosis. Bronchitis. Respiratory Failure. Pt has been previously intubated at [facility] in December 2011. Hypertension. Pneumonia. Asthma. Immunizations. LNMP - Last Normal Menstrual Period. --18:28 Favian Mills R.N. ADDITIONAL SURGERIES: no known surgeries. Assessment 18:10/24/16. --18:29 Favian Mills R.N. Interventions 18:10/24/16. 18:10/24/16. ID and allergy band on patient. To treatment room. --18:29 Favian Mills R.N. PHYSICAL ASSESSMENT 18:10/24/16. GENERAL / NEURO / PSYCH: Alert. Oriented X 4. RESPIRATORY: Moderate respiratory distress. The patient can speak in full sentences. Wheezing present. CVS: Capillary refill less than 2 seconds. SKIN: Skin is warm and dry. --18:29 Favian Mills R.N. NURSING PROGRESS NOTES 18:10/24/16. The plan of care for this patient has been created. Pulse oximeter and NIBP monitor placed on patient; monitor alarms on. Patient gowned. Head of bed elevated. Call light placed in reach. Side rails up x 2. Bed placed in lowest position. Brakes of bed on. --18:29 Favian Mills R.N. 18:10/24/16. Patient ready for evaluation- chart flagged and notification provided. --18:29 Favian Mills R.N. <<STRICKEN ENTRY-- Care transferred and report received (Favian, RN). --19:16 Neha Davis R.N. --END STRIKE>> Correction --19:17 Neha Davis R.N. EKG time: (19:21). EKG was performed by a tech and shown to the ED physician. --19:28 Stephany gR 19:30 10/24/2016 Site #1 started via IV in the left antecubital space with an 22g angiocath; one attempt. Blood drawn: rainbow set. Labeled in the presence of the patient and held. Saline lock flushed with 10 mL saline. --19:35 Juan Cook R.N. 19:30 10/24/2016 SOLU-MEDROL (MethylPREDNISolone Sodium Succ) IVP 125 mg given. via site #1. Allergies verified and confirmed 5 rights. IV patency established. IV site checked: no pain, redness, or swelling. IV flushed thoroughly pre- and post-medication administration. IVP given by RN. --19:35 Juan Cook R.N. ( PCXR at bedside). --19:35 Juan Cook R.N. Pulse oximeter and NIBP monitor placed on patient; monitor alarms on. ( HHN in progress, L/S "tight" with expiratory wheezes). --19:37 Juan Cook R.N. 20:39 10/24/2016 Albuterol Neb TX. (given by RT Butts, not charted). --20:39 Juan Cook R.N. 20:39 10/24/2016 Duoneb (Ipratropium-Albuterol) Neb TX. (given by RT Butts, not charted). --20:39 Juan Cook R.N. DISPOSITION / DISCHARGE 20:40 10/24/2016 Site #1 removed upon discharge. Bandaid applied. --20:40 Juan Cook R.N. Condition at departure: improved. No learning barriers present. Discharge instructions provided and reviewed with the patient. Reviewed medication(s) information. Patient verbalized understanding. Written instructions provided in Slovenian. The patient was discharged by the physician. She was discharged home. She left the Emergency Department ambulatory and via private vehicle. Patient driving. ( pt reports improvement in symptoms since presentation, pt speaks long, full clear sentences, denies pain, ambulated to lobby with steady gait). --20:42 Juan Cook R.N. 20:40 10/24/16. BP: 121/67. HR: 85. RR: 18. O2 saturation: 99%. Temp: deferred. Pain level now: 0/10. --20:42 Juan Cook R.N. Locked/Released at 10/24/2016 20:56 by Juan Cook R.N.
--- NOTE | 2016-10-24 20:27 | ED NURSING NOTES ---
Clinical Report - Nurses [facility] [address] [place] [address] 10/24/2016 18:11 Patient: STEVE CUI TRIAGE Triage time 18:26. Acuity: LEVEL 4. Chief Complaint: SHORTNESS OF BREATH and "ASTHMA ATTACK". 18:10/24/16. 18:10/24/16. SEPSIS SCREEN: Sepsis Screen. Negative (no infection suspected/documented). --18:29 Favian Mills R.N. 18:10/24/16. BP: 152/105. HR: 104. RR: 18. O2 saturation: 94% on room air. Temp: 99.5 F (oral). --18:29 Favian Mills R.N. Weight: 108.8 kg stated. Height/Length: 62 inches Per Patient. BMI: 43.9. --18:27 Favian Mills R.N. Medications Advair Diskus Inhalation. Albuterol Sulfate Inhalation 2.5mg/3mls per neb, TID. Flonase Nasal 2 sprays, daily. Loratadine Oral 10 mg, daily. --18:28 Faivan Mills R.N. Ventolin HFA Inhalation. --18:28 Favian Mills R.N. Medication/allergy information source: the patient. --18:29 Favian Mills R.N. Allergies NKDA. --18:28 Favian Mills R.N. History Arrived by private vehicle. Historian: patient. Accompanied by family. Primary physician (GINNA BIGGS). 18:26 10/24/16. This started today. She has had a cough and wheezing. 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 PAST MEDICAL HX: Immunizations: up-to-date. Last normal menstrual period now. SOCIAL HX: Never smoker. No alcohol use or drug use. No infectious disease exposure. ABUSE ASSESSMENT: No report of abuse. FALL RISK ASSESSMENT: Fall risk assessment completed. No fall risk identified. NUTRITIONAL RISK ASSESSMENT: The nutritional risk assessment revealed no deficiencies. FUNCTIONAL ASSESSMENT: Functional assessment: no impairments noted. LEARNING NEEDS ASSESSMENT: The learning needs assessment revealed no barriers. SKIN INTEGRITY ASSESSMENT: Skin integrity risk assessment completed. No skin integrity risk identified. --18:29 Favian Mills R.N. PROBLEMS: Leukocytosis. Bronchitis. Respiratory Failure. Pt has been previously intubated at [facility] in December 2011. Hypertension. Pneumonia. Asthma. Immunizations. LNMP - Last Normal Menstrual Period. --18:28 Favian Mills R.N. ADDITIONAL SURGERIES: no known surgeries. Assessment 18:10/24/16. --18:29 Favian Mills R.N. Interventions 18:10/24/16. 18:10/24/16. ID and allergy band on patient. To treatment room. --18:29 Favian Mills R.N. PHYSICAL ASSESSMENT 18:10/24/16. GENERAL / NEURO / PSYCH: Alert. Oriented X 4. RESPIRATORY: Moderate respiratory distress. The patient can speak in full sentences. Wheezing present. CVS: Capillary refill less than 2 seconds. SKIN: Skin is warm and dry. --18:29 Favian Mills R.N. NURSING PROGRESS NOTES 18:10/24/16. The plan of care for this patient has been created. Pulse oximeter and NIBP monitor placed on patient; monitor alarms on. Patient gowned. Head of bed elevated. Call light placed in reach. Side rails up x 2. Bed placed in lowest position. Brakes of bed on. --18:29 Favian Mills R.N. 18:10/24/16. Patient ready for evaluation- chart flagged and notification provided. --18:29 Favian Mills R.N. <<STRICKEN ENTRY-- Care transferred and report received (Favian, RN). --19:16 Neha Davis R.N. --END STRIKE>> Correction --19:17 Neha Davis R.N. EKG time: (19:21). EKG was performed by a tech and shown to the ED physician. --19:28 Stephany Rg 19:30 10/24/2016 Site #1 started via IV in the left antecubital space with an 22g angiocath; one attempt. Blood drawn: rainbow set. Labeled in the presence of the patient and held. Saline lock flushed with 10 mL saline. --19:35 Juan Cook R.N. 19:30 10/24/2016 SOLU-MEDROL (MethylPREDNISolone Sodium Succ) IVP 125 mg given. via site #1. Allergies verified and confirmed 5 rights. IV patency established. IV site checked: no pain, redness, or swelling. IV flushed thoroughly pre- and post-medication administration. IVP given by RN. --19:35 Juan Cook R.N. ( PCXR at bedside). --19:35 Juan Cook R.N. Pulse oximeter and NIBP monitor placed on patient; monitor alarms on. ( HHN in progress, L/S "tight" with expiratory wheezes). --19:37 Juan Cook R.N. 20:39 10/24/2016 Albuterol Neb TX. (given by RT Butts, not charted). --20:39 Juan Cook R.N. 20:39 10/24/2016 Duoneb (Ipratropium-Albuterol) Neb TX. (given by RT Butts, not charted). --20:39 Juan Cook R.N. DISPOSITION / DISCHARGE 20:40 10/24/2016 Site #1 removed upon discharge. Bandaid applied. --20:40 Juan Cook R.N. Condition at departure: improved. No learning barriers present. Discharge instructions provided and reviewed with the patient. Reviewed medication(s) information. Patient verbalized understanding. Written instructions provided in Tristanian. The patient was discharged by the physician. She was discharged home. She left the Emergency Department ambulatory and via private vehicle. Patient driving. ( pt reports improvement in symptoms since presentation, pt speaks long, full clear sentences, denies pain, ambulated to lobby with steady gait). --20:42 Juan Cook R.N. 20:40 10/24/16. BP: 121/67. HR: 85. RR: 18. O2 saturation: 99%. Temp: deferred. Pain level now: 0/10. --20:42 Juan Cook R.N. Locked/Released at 10/24/2016 20:56 by Juan Cook R.N.
--- NOTE | 2016-10-24 20:27 | ED CLINICAL REPORT ---
Clinical Report - Physicians/Mid Levels [facility] [address] [place] [address] 10/24/2016 18:11 Patient: STEVE CUI Time Seen: 18:29. Arrived- By private vehicle. Historian- patient. HISTORY OF PRESENT ILLNESS Chief Complaint: DYSPNEA. This started today and is still present. It was abrupt in onset and has been constant. The dyspnea is described as severe. She has had dyspnea at rest. No cough, sputum production or chest pain or discomfort. See nurses notes for current asthma threapy. Takes asthma medications. Similar symptoms previously: Many times. REVIEW OF SYSTEMS No chills, fever, sweats, calf pain or chest pain. No pedal edema, palpitations, abdominal pain, constipation or diarrhea. No nausea, vomiting or urinary problems. All systems otherwise negative, except as recorded above. PAST HISTORY Primary physician (GINNA BIGGS). Problems: Leukocytosis. Bronchitis. Respiratory Failure. Pt has been previously intubated at [facility] in December 2011. Hypertension. Pneumonia. Asthma. Additional Surgeries: no known surgeries. Medications: Ventolin HFA Inhalation. Advair Diskus Inhalation. Albuterol Sulfate Inhalation 2.5mg/3mls per neb, TID. Flonase Nasal 2 sprays, daily. Loratadine Oral 10 mg, daily. Allergies: NKDA. SOCIAL HISTORY Never smoker. No alcohol use or drug use. FAMILY HISTORY Denies family medical history. ADDITIONAL NOTES The nursing notes have been reviewed. PHYSICAL EXAM Vital Signs: 10/24/2016 18:26 BP: 152/105. HR: 104. RR: 18. O2 saturation: 94%. Temp: 99.5 F. Have been reviewed. Appearance: Alert. She is morbidly obese. Eyes: Pupils equal, round and reactive to light. ENT: Pharynx normal. Uvula midline. Neck: Normal inspection. Neck supple. No JVD. CVS: Normal heart rate and rhythm. Heart sounds normal. Respiratory: Respiratory distress. Retractions. Accessory muscle use. Prolonged expirations. Decreased air movement. Wheezing present. Abdomen: Soft and nontender. No organomegaly. Obese. Back: Normal inspection. Skin: Skin warm and dry. Normal skin color. Normal skin turgor. Extremities: Extremities exhibit normal ROM. No calf tenderness. No lower extremity edema. LABS, X-RAYS, AND EKG EKG: Rate: 90. sinus arrythmia. Prior EKG unavailable. The study has been independently viewed by me. Chest X-ray: No acute disease. PROGRESS AND PROCEDURES Course of Care: Symptoms better. Vital signs have been reviewed. Alert. Breath sounds normal. No respiratory distress. No wheezes. Normal heart rate and rhythm. Heart sounds normal. Abdomen soft and nontender. Skin warm and dry. Old medical records reviewed. Disposition: Discharged. Condition: stable. CLINICAL IMPRESSION Asthma with an acute exacerbation. INSTRUCTIONS Warnings: Further evaluation is necessary. GENERAL WARNINGS: Return or contact your physician immediately if your condition worsens or changes unexpectedly, if not improving as expected, or if other problems arise. Prescription Medications: Albuterol HFA oral inhaler: inhale 2 puffs via spacer every 4 hours as needed for wheezing or shortness of breath. Dispense one (1) unit. No refill. Prednisone 20 mg: take 3 orally every day for 5 days. Dispense fifteen (15). No refills. Follow-up: Follow up with your doctor Patricio tomorrow as scheduled. Understanding of the discharge instructions verbalized by patient. (Electronically signed by Peter Dong MD 10/25/2016 9:38)
--- NOTE | 2016-10-24 20:27 | ED ORDER SUMMARY ---
..... Patient: STEVE CUI OrderSheet [facility] VisitID: [id number] [place] [address] 26y, F Registration Date/Time: 10/24/2016 ORDER SHEET Weight: 108.8 kg (stated) Allergies: NKDA GENERAL ORDERS: RT Evaluation Stat (18:30 10/24/2016 Manuel R.NLatanya per protocol) (18:30 Manuel R.N.) Chest 1V Urgent (19:23 10/24/2016 Corby JOSUE) (Ack 19:27 AMcQuoid ER Tech1) (19:39 MCampbell) MEDICATION ORDERS: Albuterol Neb Tx 1 unit dose (NOW) (19:15 10/24/2016 Corby JOSUE) (20:39 Carlos Eduardo R.N.) DuoNeb Neb Tx 1 unit dose (NOW) (19:15 10/24/2016 Corby JOSUE) (20:39 KPaKori R.N.) IV FLUIDS: Solu-MEDROL IV 125 mg (NOW) (19:14 10/24/2016 Corby JOSUE) (19:35 KPaKori R.N.) ORDER SHEET NOTES: [Electronically signed by Juan Cook R.N. (20:56 10/24/2016)] [Electronically signed by Peter Dong MD (09:38 10/25/2016)] [Electronically locked/signed by Juan Cook R.N. (20:56 10/24/2016)]
--- NOTE | 2016-10-25 09:38 | ED DISCHARGE INSTRUCTIONS ---
Patient: STEVE CUI General Instructions Merged With [facility] VisitID: [id number] [place] [address] 26y, F Registration Date/Time: 10/24/2016 Asthma with an acute exacerbation. INSTRUCTIONS Warnings: Further evaluation is necessary. GENERAL WARNINGS: Return or contact your physician immediately if your condition worsens or changes unexpectedly, if not improving as expected, or if other problems arise. Prescription Medications: Albuterol HFA oral inhaler: inhale 2 puffs via spacer every 4 hours as needed for wheezing or shortness of breath. Dispense one (1) unit. No refill. Prednisone 20 mg: take 3 orally every day for 5 days. Dispense fifteen (15). No refills. Follow-up: Follow up with your doctor Patricio tomorrow as scheduled. Understanding of the discharge instructions verbalized by patient. ADDITIONAL INFORMATION Asthma [Adult] Asthma is a disease where the small air passages within the lung go into spasm and restrict the flow of air. Inflammation and swelling of the airways cause further restriction. During an acute asthma attack, these factors cause difficulty breathing, wheezing, cough and chest tightness. An asthma attack can be triggered by many things. Common triggers include the common cold, bronchitis, pneumonia, irritants such as smoke or pullutants in the air, emotional upset and heavy exercise. Inmany adults with asthma, allergies todust, mold, pollen and animal dander can cause an asthma attack. Skipping doses of daily asthma medicine can also bring on an asthma attack. Asthma can be controlled with proper medicines and decreased exposure to known allergens. Home Care: Take prescribed medicine exactly at the times advised. If you have a hand-held inhaler or aerosol breathing medicine, do not use it more than once every four hours, unless told to do so. (If you need this medicine more than every four hours, you may need to return to the Emergency Room.) If prescribed an antibiotic or prednisone, take all of the medicine even if you are feeling better after a few days. Do not smoke. Avoid being exposed to the smoke of others. Some persons with asthma have worsening of their symptoms when they take aspirin and non-steroidal medicines like ibuprofen (Motrin, Advil) and naproxen (Aleve, Naprosyn). Talk to your doctor if you think this may apply to you. Acetaminophen (Tylenol)should be safe to use. Follow Up with your doctor, or as advised by our staff. Always bring all of your current medicines with you for your doctor to see. If you do not already have one, talk to your doctor about developing a personalized "Asthma Action Plan." [NOTE: A pneumococcal vaccine and yearly flu shot (every fall) are recommended. Ask your doctor about this.] Get Prompt Medical Attention if any of the following occur: Increased wheezing or shortness of breath Need to use your inhalers more often than usual without relief Fever of 100.4F (38C) or higher, or as directed by your healthcare provider Coughing up lots of dark-colored or bloody sputum (mucus) Chest pain with each breath You do not start to improve within 24 hours Call 911 If Any Of The Following Occur : Trouble walking or talking because of shortness of breath If you use a peak flow meter andyou are still in the red zone (less than 50 percent) 15 minutes after using inhaler medication Lips or fingernails turning maloney or blue Albuterol Sulfate Pressurized inhalation, suspension What is this medicine? ALBUTEROL (al BYOO ter ole) is a bronchodilator. It helps open up the airways in your lungs to make it easier to breathe. This medicine is used to treat and to prevent bronchospasm. How should I use this medicine? This medicine is for inhalation through the mouth. Follow the directions on your prescription label. Take your medicine at regular intervals. Do not use more often than directed. Make sure that you are using your inhaler correctly. Ask you doctor or health care provider if you have any questions. Talk to your skilled nursing facility counselor regarding the use of this medicine in children. Special care may be needed. What side effects may I notice from receiving this medicine? Side effects that you should report to your doctor or health healthcare prof as soon as possible: allergic reactions like skin rash, itching or hives, swelling of the face, lips, or tongue breathing problems chest pain feeling faint or lightheaded, falls high blood pressure irregular heartbeat fever muscle cramps or weakness pain, tingling, numbness in the hands or feet vomiting Side effects that usually do not require medical attention (report to your doctor or health healthcare prof if they continue or are bothersome): cough difficulty sleeping headache nervousness or trembling stomach upset stuffy or runny nose throat irritation unusual taste What may interact with this medicine? anti-infectives like chloroquine and pentamidine caffeine cisapride diuretics medicines for colds medicines for depression or for emotional or psychotic conditions medicines for weight loss including some herbal products methadone some antibiotics like clarithromycin, erythromycin, levofloxacin, and linezolid some heart medicines steroid hormones like dexamethasone, cortisone, hydrocortisone theophylline thyroid hormones What if I miss a dose? If you miss a dose, use it as soon as you can. If it is almost time for your next dose, use only that dose. Do not use double or extra doses. Where should I keep my medicine? Keep out of the reach of children. Store at room temperature between 15 and 30 degrees C (59 and 86 degrees F). The contents are under pressure and may burst when exposed to heat or flame. Do not freeze. This medicine does not work as well if it is too cold. Throw away any unused medicine after the expiration date. Inhalers need to be thrown away after the labeled number of puffs have been used or by the expiration date; whichever comes first. Ventolin HFA should be thrown away 12 months after removing from foil pouch. Check the instructions that come with your medicine. What should I tell my health care provider before I take this medicine? They need to know if you have any of the following conditions: diabetes heart disease or irregular heartbeat high blood pressure pheochromocytoma seizures thyroid disease an unusual or allergic reaction to albuterol, levalbuterol, sulfites, other medicines, foods, dyes, or preservatives or trying to get breast-feeding What should I watch for while using this medicine? Tell your doctor or health healthcare prof if your symptoms do not improve. Do not use extra albuterol. If your asthma or bronchitis gets worse while you are using this medicine, call your doctor right away. If your mouth gets dry try chewing sugarless gum or sucking hard candy. Drink water as directed. Prednisone Oral tablet What is this medicine? PREDNISONE (PRED ni sone) is a corticosteroid. It is commonly used to treat inflammation of the skin, joints, lungs, and other organs. Common conditions treated include asthma, allergies, and arthritis. It is also used for other conditions, such as blood disorders and diseases of the adrenal glands. How should I use this medicine? Take this medicine by mouth with a glass of water. Follow the directions on the prescription label. Take this medicine with food. If you are taking this medicine once a day, take it in the morning. Do not take more medicine than you are told to take. Do not suddenly stop taking your medicine because you may develop a severe reaction. Your doctor will tell you how much medicine to take. If your doctor wants you to stop the medicine, the dose may be slowly lowered over time to avoid any side effects. Talk to your skilled nursing facility counselor regarding the use of this medicine in children. Special care may be needed. What side effects may I notice from receiving this medicine? Side effects that you should report to your doctor or health healthcare prof as soon as possible: allergic reactions like skin rash, itching or hives, swelling of the face, lips, or tongue changes in emotions or moods changes in vision depressed mood eye pain fever or chills, cough, sore throat, pain or difficulty passing urine increased thirst swelling of ankles, feet Side effects that usually do not require medical attention (report to your doctor or health healthcare prof if they continue or are bothersome): confusion, excitement, restlessness headache nausea, vomiting skin problems, acne, thin and shiny skin trouble sleeping weight gain What may interact with this medicine? Do not take this medicine with any of the following medications: metyrapone mifepristone This medicine may also interact with the following medications: aminoglutethimide amphotericin B aspirin and aspirin-like medicines barbiturates certain medicines for diabetes, like glipizide or glyburide cholestyramine cholinesterase inhibitors cyclosporine digoxin diuretics ephedrine female hormones, like estrogens and control pills isoniazid ketoconazole NSAIDS, medicines for pain and inflammation, like ibuprofen or naproxen phenytoin rifampin toxoids vaccines warfarin What if I miss a dose? If you miss a dose, take it as soon as you can. If it is almost time for your next dose, talk to your doctor or health healthcare prof. You may need to miss a dose or take an extra dose. Do not take double or extra doses without advice. Where should I keep my medicine? Keep out of the reach of children. Store at room temperature between 15 and 30 degrees C (59 and 86 degrees F). Protect from light. Keep container tightly closed. Throw away any unused medicine after the expiration date. What should I tell my health care provider before I take this medicine? They need to know if you have any of these conditions: Gerson's syndrome diabetes glaucoma heart disease high blood pressure infection (especially a virus infection such as chickenpox, cold sores, or herpes) kidney disease liver disease mental illness myasthenia gravis osteoporosis seizures stomach or intestine problems thyroid disease an unusual or allergic reaction to lactose, prednisone, other medicines, foods, dyes, or preservatives or trying to get breast-feeding What should I watch for while using this medicine? Visit your doctor or health healthcare prof for regular checks on your progress. If you are taking this medicine over a prolonged period, carry an identification card with your name and address, the type and dose of your medicine, and your doctor's name and address. This medicine may increase your risk of getting an infection. Tell your doctor or health healthcare prof if you are around anyone with measles or chickenpox, or if you develop sores or blisters that do not heal properly. If you are going to have surgery, tell your doctor or health healthcare prof that you have taken this medicine within the last twelve months. Ask your doctor or health healthcare prof about your diet. You may need to lower the amount of salt you eat. This medicine may affect blood sugar levels. If you have diabetes, check with your doctor or health healthcare prof before you change your diet or the dose of your diabetic medicine. You have been given the following additional information: Asthma, Acute (Adult) Albuterol Sulfate Pressurized inhalation, suspension Prednisone Oral tablet (Electronically signed by Peter Dong MD 10/25/2016 9:38)
--- NOTE | 2016-10-25 09:38 | ED DISCHARGE INSTRUCTIONS ---
Patient: STEVE CUI General Instructions [facility] VisitID: [id number] [place] [address] 26y, F Registration Date/Time: 10/24/2016 Asthma with an acute exacerbation. INSTRUCTIONS Warnings: Further evaluation is necessary. GENERAL WARNINGS: Return or contact your physician immediately if your condition worsens or changes unexpectedly, if not improving as expected, or if other problems arise. Prescription Medications: Albuterol HFA oral inhaler: inhale 2 puffs via spacer every 4 hours as needed for wheezing or shortness of breath. Dispense one (1) unit. No refill. Prednisone 20 mg: take 3 orally every day for 5 days. Dispense fifteen (15). No refills. Follow-up: Follow up with your doctor Patricio tomorrow as scheduled. Understanding of the discharge instructions verbalized by patient. ADDITIONAL INFORMATION Asthma [Adult] Asthma is a disease where the small air passages within the lung go into spasm and restrict the flow of air. Inflammation and swelling of the airways cause further restriction. During an acute asthma attack, these factors cause difficulty breathing, wheezing, cough and chest tightness. An asthma attack can be triggered by many things. Common triggers include the common cold, bronchitis, pneumonia, irritants such as smoke or pullutants in the air, emotional upset and heavy exercise. Inmany adults with asthma, allergies todust, mold, pollen and animal dander can cause an asthma attack. Skipping doses of daily asthma medicine can also bring on an asthma attack. Asthma can be controlled with proper medicines and decreased exposure to known allergens. Home Care: Take prescribed medicine exactly at the times advised. If you have a hand-held inhaler or aerosol breathing medicine, do not use it more than once every four hours, unless told to do so. (If you need this medicine more than every four hours, you may need to return to the Emergency Room.) If prescribed an antibiotic or prednisone, take all of the medicine even if you are feeling better after a few days. Do not smoke. Avoid being exposed to the smoke of others. Some persons with asthma have worsening of their symptoms when they take aspirin and non-steroidal medicines like ibuprofen (Motrin, Advil) and naproxen (Aleve, Naprosyn). Talk to your doctor if you think this may apply to you. Acetaminophen (Tylenol)should be safe to use. Follow Up with your doctor, or as advised by our staff. Always bring all of your current medicines with you for your doctor to see. If you do not already have one, talk to your doctor about developing a personalized "Asthma Action Plan." [NOTE: A pneumococcal vaccine and yearly flu shot (every fall) are recommended. Ask your doctor about this.] Get Prompt Medical Attention if any of the following occur: Increased wheezing or shortness of breath Need to use your inhalers more often than usual without relief Fever of 100.4F (38C) or higher, or as directed by your healthcare provider Coughing up lots of dark-colored or bloody sputum (mucus) Chest pain with each breath You do not start to improve within 24 hours Call 911 If Any Of The Following Occur : Trouble walking or talking because of shortness of breath If you use a peak flow meter andyou are still in the red zone (less than 50 percent) 15 minutes after using inhaler medication Lips or fingernails turning maloney or blue Albuterol Sulfate Pressurized inhalation, suspension What is this medicine? ALBUTEROL (al BYOO ter ole) is a bronchodilator. It helps open up the airways in your lungs to make it easier to breathe. This medicine is used to treat and to prevent bronchospasm. How should I use this medicine? This medicine is for inhalation through the mouth. Follow the directions on your prescription label. Take your medicine at regular intervals. Do not use more often than directed. Make sure that you are using your inhaler correctly. Ask you doctor or health care provider if you have any questions. Talk to your phlebotomist lab assistant regarding the use of this medicine in children. Special care may be needed. What side effects may I notice from receiving this medicine? Side effects that you should report to your doctor or health manager long term care as soon as possible: allergic reactions like skin rash, itching or hives, swelling of the face, lips, or tongue breathing problems chest pain feeling faint or lightheaded, falls high blood pressure irregular heartbeat fever muscle cramps or weakness pain, tingling, numbness in the hands or feet vomiting Side effects that usually do not require medical attention (report to your doctor or health manager long term care if they continue or are bothersome): cough difficulty sleeping headache nervousness or trembling stomach upset stuffy or runny nose throat irritation unusual taste What may interact with this medicine? anti-infectives like chloroquine and pentamidine caffeine cisapride diuretics medicines for colds medicines for depression or for emotional or psychotic conditions medicines for weight loss including some herbal products methadone some antibiotics like clarithromycin, erythromycin, levofloxacin, and linezolid some heart medicines steroid hormones like dexamethasone, cortisone, hydrocortisone theophylline thyroid hormones What if I miss a dose? If you miss a dose, use it as soon as you can. If it is almost time for your next dose, use only that dose. Do not use double or extra doses. Where should I keep my medicine? Keep out of the reach of children. Store at room temperature between 15 and 30 degrees C (59 and 86 degrees F). The contents are under pressure and may burst when exposed to heat or flame. Do not freeze. This medicine does not work as well if it is too cold. Throw away any unused medicine after the expiration date. Inhalers need to be thrown away after the labeled number of puffs have been used or by the expiration date; whichever comes first. Ventolin HFA should be thrown away 12 months after removing from foil pouch. Check the instructions that come with your medicine. What should I tell my health care provider before I take this medicine? They need to know if you have any of the following conditions: diabetes heart disease or irregular heartbeat high blood pressure pheochromocytoma seizures thyroid disease an unusual or allergic reaction to albuterol, levalbuterol, sulfites, other medicines, foods, dyes, or preservatives or trying to get breast-feeding What should I watch for while using this medicine? Tell your doctor or health manager long term care if your symptoms do not improve. Do not use extra albuterol. If your asthma or bronchitis gets worse while you are using this medicine, call your doctor right away. If your mouth gets dry try chewing sugarless gum or sucking hard candy. Drink water as directed. Prednisone Oral tablet What is this medicine? PREDNISONE (PRED ni sone) is a corticosteroid. It is commonly used to treat inflammation of the skin, joints, lungs, and other organs. Common conditions treated include asthma, allergies, and arthritis. It is also used for other conditions, such as blood disorders and diseases of the adrenal glands. How should I use this medicine? Take this medicine by mouth with a glass of water. Follow the directions on the prescription label. Take this medicine with food. If you are taking this medicine once a day, take it in the morning. Do not take more medicine than you are told to take. Do not suddenly stop taking your medicine because you may develop a severe reaction. Your doctor will tell you how much medicine to take. If your doctor wants you to stop the medicine, the dose may be slowly lowered over time to avoid any side effects. Talk to your phlebotomist lab assistant regarding the use of this medicine in children. Special care may be needed. What side effects may I notice from receiving this medicine? Side effects that you should report to your doctor or health manager long term care as soon as possible: allergic reactions like skin rash, itching or hives, swelling of the face, lips, or tongue changes in emotions or moods changes in vision depressed mood eye pain fever or chills, cough, sore throat, pain or difficulty passing urine increased thirst swelling of ankles, feet Side effects that usually do not require medical attention (report to your doctor or health manager long term care if they continue or are bothersome): confusion, excitement, restlessness headache nausea, vomiting skin problems, acne, thin and shiny skin trouble sleeping weight gain What may interact with this medicine? Do not take this medicine with any of the following medications: metyrapone mifepristone This medicine may also interact with the following medications: aminoglutethimide amphotericin B aspirin and aspirin-like medicines barbiturates certain medicines for diabetes, like glipizide or glyburide cholestyramine cholinesterase inhibitors cyclosporine digoxin diuretics ephedrine female hormones, like estrogens and control pills isoniazid ketoconazole NSAIDS, medicines for pain and inflammation, like ibuprofen or naproxen phenytoin rifampin toxoids vaccines warfarin What if I miss a dose? If you miss a dose, take it as soon as you can. If it is almost time for your next dose, talk to your doctor or health manager long term care. You may need to miss a dose or take an extra dose. Do not take double or extra doses without advice. Where should I keep my medicine? Keep out of the reach of children. Store at room temperature between 15 and 30 degrees C (59 and 86 degrees F). Protect from light. Keep container tightly closed. Throw away any unused medicine after the expiration date. What should I tell my health care provider before I take this medicine? They need to know if you have any of these conditions: Gerson's syndrome diabetes glaucoma heart disease high blood pressure infection (especially a virus infection such as chickenpox, cold sores, or herpes) kidney disease liver disease mental illness myasthenia gravis osteoporosis seizures stomach or intestine problems thyroid disease an unusual or allergic reaction to lactose, prednisone, other medicines, foods, dyes, or preservatives or trying to get breast-feeding What should I watch for while using this medicine? Visit your doctor or health manager long term care for regular checks on your progress. If you are taking this medicine over a prolonged period, carry an identification card with your name and address, the type and dose of your medicine, and your doctor's name and address. This medicine may increase your risk of getting an infection. Tell your doctor or health manager long term care if you are around anyone with measles or chickenpox, or if you develop sores or blisters that do not heal properly. If you are going to have surgery, tell your doctor or health manager long term care that you have taken this medicine within the last twelve months. Ask your doctor or health manager long term care about your diet. You may need to lower the amount of salt you eat. This medicine may affect blood sugar levels. If you have diabetes, check with your doctor or health manager long term care before you change your diet or the dose of your diabetic medicine. You have been given the following additional information: Asthma, Acute (Adult) Albuterol Sulfate Pressurized inhalation, suspension Prednisone Oral tablet (Electronically signed by Peter Dong MD 10/25/2016 9:38)
--- NOTE | 2016-10-25 09:38 | ED MAR SUMMARY ---
..... Medication Administration Record [facility] [address] [place] [address] Patient: STEVE CUI Visit ID: [id number] 26y, F Weight: 108.8 kg Height/Length: 62 in BMI: 43.9 ALLERGIES: NKDA Given 19:30 10/24/2016 Juan Cook R.N. Medication Administered: SOLU-MEDROL [IVP] (METHYLPREDNISOLONE SODIUM SUCC), Dose: 125 mg IVP, Site: #1 left AC. Medication Ordered: Solu-MEDROL IV 125 mg (NOW). Given 20:39 10/24/2016 Juan Cook R.N. Medication Administered: ALBUTEROL [NEB TX], Dose: Neb TX. Medication Ordered: Albuterol Neb Tx 1 unit dose (NOW). Given :39 10/24/2016 Juan Cook R.N. Medication Administered: DUONEB [NEB TX] (IPRATROPIUM-ALBUTEROL), Dose: Neb TX. Medication Ordered: DuoNeb Neb Tx 1 unit dose (NOW).
--- NOTE | 2016-10-25 09:38 | ED MED RECONCILIATION SUMMARY ---
Patient: STEVE CUI Medication Reconciliation Report [facility] VisitID: [id number] [place] [address] 26y, F Registration Date/Time: 10/24/2016 Weight: 108.8 kg Height/Length: 62 in. BMI: 43.9 ALLERGIES: NKDA The patient's Home Medications are listed below: THE FOLLOWING MEDICATIONS NEED TO BE RECONCILED: Advair Diskus Inhalation Albuterol Sulfate Inhalation 2.5mg/3mls per neb, TID Flonase Nasal 2 sprays, daily Loratadine Oral 10 mg, daily Ventolin HFA Inhalation The source(s) of the original Home Medication information: patient The following Medications were given to the patient in the Emergency Department: SOLU-MEDROL [IVP] IVP 125 mg, administered: 10/24/2016 7:30:00 PM Albuterol [Neb Tx] Neb TX, administered: 10/24/2016 8:39:00 PM Duoneb [Neb Tx] Neb TX, administered: 10/24/2016 8:39:00 PM The following Medications were prescribed to the patient: Albuterol HFA oral inhaler: inhale 2 puffs via spacer every 4 hours as needed for wheezing or shortness of breath. Dispense one (1) unit. No refill. -- Petre Dong MD Prednisone 20 mg: take 3 orally every day for 5 days. Dispense fifteen (15). No refills. -- Peter Dong MD
--- NOTE | 2016-10-25 09:38 | ED MED RECONCILIATION SUMMARY ---
Patient: STEVE CUI Medication Reconciliation Report [facility] VisitID: [id number] [place] [address] 26y, F Registration Date/Time: 10/24/2016 Weight: 108.8 kg Height/Length: 62 in. BMI: 43.9 ALLERGIES: NKDA The patient's Home Medications are listed below: THE FOLLOWING MEDICATIONS NEED TO BE RECONCILED: Advair Diskus Inhalation Albuterol Sulfate Inhalation 2.5mg/3mls per neb, TID Flonase Nasal 2 sprays, daily Loratadine Oral 10 mg, daily Ventolin HFA Inhalation The source(s) of the original Home Medication information: patient The following Medications were given to the patient in the Emergency Department: SOLU-MEDROL [IVP] IVP 125 mg, administered: 10/24/2016 7:30:00 PM Albuterol [Neb Tx] Neb TX, administered: 10/24/2016 8:39:00 PM Duoneb [Neb Tx] Neb TX, administered: 10/24/2016 8:39:00 PM The following Medications were prescribed to the patient: Albuterol HFA oral inhaler: inhale 2 puffs via spacer every 4 hours as needed for wheezing or shortness of breath. Dispense one (1) unit. No refill. -- Peter Dong MD Prednisone 20 mg: take 3 orally every day for 5 days. Dispense fifteen (15). No refills. -- Peter Dong MD
--- NOTE | 2016-10-25 09:38 | ED MAR SUMMARY ---
..... Medication Administration Record [facility] [address] [place] [address] Patient: STEVE CUI Visit ID: [id number] 26y, F Weight: 108.8 kg Height/Length: 62 in BMI: 43.9 ALLERGIES: NKDA Given 19:30 10/24/2016 Juan Cook R.N. Medication Administered: SOLU-MEDROL [IVP] (METHYLPREDNISOLONE SODIUM SUCC), Dose: 125 mg IVP, Site: #1 left AC. Medication Ordered: Solu-MEDROL IV 125 mg (NOW). Given 20:39 10/24/2016 Juan Cook R.N. Medication Administered: ALBUTEROL [NEB TX], Dose: Neb TX. Medication Ordered: Albuterol Neb Tx 1 unit dose (NOW). Given :39 10/24/2016 Juan Cook R.N. Medication Administered: DUONEB [NEB TX] (IPRATROPIUM-ALBUTEROL), Dose: Neb TX. Medication Ordered: DuoNeb Neb Tx 1 unit dose (NOW).
== END 2016-10-24 20:51 | disposition home or self-care (01) ==
LOC: ED SRH 18:11
DX: J45.901 Unspecified asthma with (acute) exacerbation (principal); I10 Essential (primary) hypertension; Z79.899 Other long term (current) drug therapy